=== PATIENT | female | born 1945 | race Caucasian/White ===

== ENCOUNTER → 2017-03-08 | Outpatient (CLI) | payer MEDICARE, OTHER ==
[~2017-03-08] MED LIST: ACET-1600 PO; ASPI-496 PO; BIFI4CAP PO; CALC1TAB PO; CHOL20002 PO; HYDR-3241 PO; LEVO125T PO; OMEP-110 PO; OMEP40CA6 PO; SILVER CENTRUM PO; SIMV20TA3 PO; SIMV40TA3 PO
[2017-03-08 15:44] LABS: ASPARTATE AMINO TRANSFERASE 21 U/L (15-37); BLOOD UREA NITROGEN 17 mg/dL (7-18)
== END | disposition home or self-care (01) ==
LOC: STAR 14:17
PROVIDERS: ATTEND Specialist
DX: Z01.810 Encounter for preprocedural cardiovascular examination (principal); Z01.811 Encounter for preprocedural respiratory examination; K44.9 Diaphragmatic hernia without obstruction or gangrene; R79.1 Abnormal coagulation profile
CPT/HCPCS: 36415; 71020; 80053; 85025; 85610; 85730; 93005

== ENCOUNTER 2017-03-14 12:57 | Inpatient (IN) | payer MEDICARE, OTHER ==
[~2017-03-14] VITALS: Ht 168.9 cm; Wt 82.9 kg
[2017-03-14] MEDS ORDERED: LACTATED RINGERS 1,000 ML IV SCH (13:27)
[2017-03-14 13:34] VITALS: BP 166/75
[2017-03-14] MEDS ORDERED: FENTANYL PF 250 MCG/5ML ONE ×2 (15:39→19:00)
[2017-03-14] MEDS ORDERED: MIDAZOLAM 1 MG/ML, 2ML ONE (15:39)
[2017-03-14] MEDS ORDERED: BUPIVACAINE/PF-EPI 0.25% 1:200K ONE (16:46)
[2017-03-14] MEDS ORDERED: DEXAMETHASONE 4 MG/ML, 1ML ONE (16:57)
[2017-03-14] MEDS ORDERED: GLYCOPYRROLATE 0.2MG/1ML ONE (16:57)
[2017-03-14] MEDS ORDERED: ROCURONIUM 10 MG/ML ONE (16:57)
[2017-03-14] MEDS ORDERED: PHENYLEPHRINE 10 MG/ML ONE (16:57)
[2017-03-14] MEDS ORDERED: CEFAZOLIN 1,000 MG ONE (16:57)
[2017-03-14] MEDS ORDERED: ONDANSETRON 2MG/ML, 2ML ONE (16:57)
[2017-03-14] MEDS ORDERED: NEOSTIGMINE 1 MG/ML, 10ML ONE (16:57)
[2017-03-14] MEDS ORDERED: PROPOFOL 10 MG/ML, 20ML ONE (16:57)
[2017-03-14] MEDS ORDERED: INDOCYANINE GREEN 25 MG VIAL IV ONE (17:00)
[2017-03-14] MEDS ORDERED: ONDANSETRON 2MG/ML, 2ML IVPush PRN (19:00)
[2017-03-14] MEDS ORDERED: ALBUTEROL/IPRATROPIUM 2.5MG/0.5MG, 3 ML NPPB PRN (19:00)
[2017-03-14] MEDS ORDERED: METOCLOPRAMIDE 5 MG/ML, 2ML IV PRN (19:00)
[2017-03-14] MEDS ORDERED: LABETALOL 5MG/ML, 20ML IV PRN (19:00)
[2017-03-14] MEDS ORDERED: PROMETHAZINE 25 MG/ML, 1ML IV PRN (19:00)
[2017-03-14] MEDS ORDERED: ACETAMINOPHEN 325 MG TABLET PO PRN (19:00)
[2017-03-14] MEDS ORDERED: hydrALAzine 20 MG/ML, 1ML IV PRN (19:00)
[2017-03-14] MEDS ORDERED: MIDAZOLAM 1 MG/ML, 2ML IV PRN (19:00)
[2017-03-14] MEDS ORDERED: FENTANYL PF 100 MCG/2ML IV PRN (19:00)
[2017-03-14] MEDS ORDERED: OXYcodone 5 MG/5 ML ORAL.SOL UDC PO PRN (19:00)
[2017-03-14] MEDS ORDERED: MEPERIDINE/PF 25MG/0.5ML IVPush PRN (19:00)
[2017-03-14] MEDS ORDERED: HYDROmorphone 1 MG/ML, 1ML ONE (21:09)
[2017-03-14] MEDS: HYDROmorphone 1 MG/ML, 1ML IV PRN ×3 (21:30→22:06)
[2017-03-14] MEDS ORDERED: morphine SULFATE 10 MG/ML, 1ML IV PRN (23:00)
[2017-03-14] MEDS: POTASSIUM CHLORIDE 20 MEQ in D5%-0.45% NACL 1,000 ML IV SCH (23:39)
[2017-03-14] MEDS: SIMVASTATIN 20 MG TABLET PO SCH (23:48)
[2017-03-15 02:14] VITALS: BP 139/62
[2017-03-15] MEDS: LEVOTHYROXINE 125 MCG TABLET PO SCH (05:29)
[2017-03-15 06:02] LABS: BLOOD UREA NITROGEN 16 mg/dL (7-18)
[2017-03-15] MEDS: POTASSIUM CHLORIDE 20 MEQ in D5%-0.45% NACL 1,000 ML IV SCH ×3 (06:03→20:43)
[2017-03-15 06:57] VITALS: BP 110/64
[2017-03-15] MEDS: OMEPRAZOLE 20 MG CAPSULE.DR PO SCH (07:30)
[2017-03-15] MEDS: CALCIUM/VITAMIN D3 250-125 TABLET PO SCH ×2 (09:00→20:35)
[2017-03-15] MEDS: LACTOBACILLUS CHEW TABLET PO SCH (09:00)
[2017-03-15] MEDS: CHOLECALCIFEROL 1,000 UNIT TABLET PO SCH (09:00)
[2017-03-15] MEDS: ASPIRIN 81 MG TABLET CHEW PO SCH (09:00)
[2017-03-15] MEDS: MULTIVITAMIN 1 TABLET PO SCH (09:00)
[2017-03-15] MEDS ORDERED: ONDANSETRON 2MG/ML, 2ML IVPush PRN (12:30)
[2017-03-15] MEDS: ONDANSETRON ODT 4 MG PO PRN ×3 (12:30→23:07)
[2017-03-15 15:52] VITALS: BP 119/59
[2017-03-15 19:15] VITALS: BP 116/66
[2017-03-15] MEDS: SIMVASTATIN 20 MG TABLET PO SCH (20:43)
[2017-03-16 02:03] VITALS: BP 128/76
[2017-03-16] MEDS: POTASSIUM CHLORIDE 20 MEQ in D5%-0.45% NACL 1,000 ML IV SCH (02:44)
[2017-03-16] MEDS: ONDANSETRON ODT 4 MG PO PRN (04:26)
[2017-03-16 05:08] LABS: BLOOD UREA NITROGEN 8 mg/dL (7-18)
[2017-03-16 05:10] LABS: ASPARTATE AMINO TRANSFERASE 23 U/L (15-37)
[2017-03-16] MEDS: LEVOTHYROXINE 125 MCG TABLET PO SCH (05:30)
[2017-03-16 06:35] VITALS: BP 141/45
[2017-03-16] MEDS: OMEPRAZOLE 20 MG CAPSULE.DR PO SCH (07:30)
[2017-03-16] MEDS: ASPIRIN 81 MG TABLET CHEW PO SCH (09:00)
[2017-03-16] MEDS: CHOLECALCIFEROL 1,000 UNIT TABLET PO SCH (09:00)
[2017-03-16] MEDS: CALCIUM/VITAMIN D3 250-125 TABLET PO SCH (09:00)
[2017-03-16] MEDS ORDERED: ASPIRIN 81 MG TABLET EC PO SCH (09:00)
[2017-03-16] MEDS: LACTOBACILLUS CHEW TABLET PO SCH (09:00)
[2017-03-16] MEDS: MULTIVITAMIN 1 TABLET PO SCH (09:00)
[2017-03-16] MEDS ORDERED: OMEPRAZOLE 20 MG CAPSULE.DR PO SCH (09:00)
[2017-03-16] MEDS ORDERED: ONDA-39 PO (16:01)
[2017-03-16] MEDS ORDERED: ONDA4TAB13 SL (16:01)
[2017-03-16] MEDS ORDERED: HYDR-882 PO (16:02)
[2017-03-16] MEDS ORDERED: SIMVASTATIN 20 MG TABLET PO SCH (21:00)
[2017-03-17] MEDS ORDERED: LEVOTHYROXINE 125 MCG TABLET PO SCH (06:00)
== END 2017-03-16 16:20 | disposition home or self-care (01) | DRG 739 ==
LOC: OUT 12:57 → 3NW 22:34 → OUT 22:39 → 3NW 22:39 → DCLOUNGE 03-16 13:55
PROVIDERS: ADMIT Specialist; ATTEND Specialist
PROC: 0UTC4ZZ Resection of Cervix, Percutaneous Endoscopic Approach (ICD-10-PCS; 2017-03-14)
PROC: 0UT24ZZ Resection of Bilateral Ovaries, Percutaneous Endoscopic Approach (ICD-10-PCS; 2017-03-14)
PROC: 0UT74ZZ Resection of Bilateral Fallopian Tubes, Percutaneous Endoscopic Approach (ICD-10-PCS; 2017-03-14)
PROC: 07BC4ZZ Excision of Pelvis Lymphatic, Percutaneous Endoscopic Approach (ICD-10-PCS; 2017-03-14)
PROC: 0DNW4ZZ Release Peritoneum, Percutaneous Endoscopic Approach (ICD-10-PCS; 2017-03-14)
PROC: 8E0W4CZ Robotic Assisted Procedure of Trunk Region, Percutaneous Endoscopic Approach (ICD-10-PCS; 2017-03-14)
PROC: 0UT94ZZ Resection of Uterus, Percutaneous Endoscopic Approach (ICD-10-PCS; principal; 2017-03-14 16:00)
DX: C54.1 Malignant neoplasm of endometrium (principal); E43 Unspecified severe protein-calorie malnutrition; K57.12 Diverticulitis of small intestine without perforation or abscess without bleeding; I89.8 Other specified noninfective disorders of lymphatic vessels and lymph nodes; K57.30 Diverticulosis of large intestine without perforation or abscess without bleeding; K66.0 Peritoneal adhesions (postprocedural) (postinfection); E03.9 Hypothyroidism, unspecified; E78.5 Hyperlipidemia, unspecified; K21.9 Gastro-esophageal reflux disease without esophagitis; R11.2 Nausea with vomiting, unspecified
CPT/HCPCS: 36415; 74000; 80048; 80053; 85025; 86850; 86900; 86923; 88112; 88304; 88305; 88307; 88331; 88333; J0690; J1100; J1170; J2250; J2405; J2704; J2710; J3010; J3480; J3490; Q0162; J2370; J7120

== ENCOUNTER 2017-03-21 02:45 | Inpatient (IN) | payer MEDICARE, OTHER ==
[~2017-03-21] VITALS: Ht 167.6 cm; Wt 77.1 kg
[~2017-03-21 02:45] MED LIST changes: +HYDR-882 PO; +ONDA-39 PO; +ONDA4TAB13 SL
[2017-03-21 03:42] LABS: BLOOD UREA NITROGEN 18 mg/dL (7-18)
[2017-03-21 03:44] LABS: ASPARTATE AMINO TRANSFERASE 49 U/L (15-37)
[2017-03-21 03:59] LABS: DIFF TOTAL CELLS COUNTED 100 CELL DIFF
[2017-03-21 04:02] LABS: VERIFY COUNTS? YES
[2017-03-21 04:12] LABS: PATH.CAST-FLAG NOT PRESENT; SPERM-FLAG NOT PRESENT; SRC-FLAG NOT PRESENT; XTAL-FLAG NOT PRESENT; YLC-FLAG NOT PRESENT
[2017-03-21] MEDS ORDERED: SODIUM CHLORIDE 0.9% 1,000ML IVBOLUS ONE ×2 (05:30→06:00)
[2017-03-21] MEDS ORDERED: PIPERACILLIN/TAZO/PMX 3.375GM 50 ML ONE (05:47)
[2017-03-21] MEDS ORDERED: SODIUM CHLORIDE 0.9% 1,000 ML IV ONE (05:49)
[2017-03-21] MEDS ORDERED: MORPHINE SULFATE 4 MG/ML, 1ML IVPush PRN (06:00)
[2017-03-21] MEDS ORDERED: PIPERACILLIN/TAZO/PMX 3.375GM 50 ML IV ONE (06:00)
[2017-03-21] MEDS ORDERED: ONDANSETRON 2MG/ML, 2ML IVPush PRN (06:00)
[2017-03-21] MEDS ORDERED: VANCOMYCIN PER PHARMACY MC ONE (06:00)
[2017-03-21] MEDS ORDERED: OMNIPAQUE 350 MG/ML, 100ML BOTTLE ONE (06:07)
[2017-03-21] MEDS ORDERED: VANCOMYCIN 1,500 MG in SODIUM CHLORIDE 0.9% 250 ML IV ONE (06:30)
[2017-03-21 12:28] VITALS: BP 122/75
[2017-03-21] MEDS ORDERED: ONDANSETRON 4 MG TABLET PO SCH (13:30)
[2017-03-21] MEDS: PIPERACILLIN/TAZO/PMX 3.375GM 50 ML IV SCH ×2 (13:54→19:52)
[2017-03-21] MEDS: METRONIDAZOLE PMX 500MG/100ML 100 ML IV SCH ×2 (14:33→20:35)
[2017-03-21] MEDS: POTASSIUM CHLORIDE 20 MEQ in SODIUM CHLORIDE 0.45% 1,000 ML IV SCH (18:04)
[2017-03-21] MEDS ORDERED: ONDANSETRON 4 MG TABLET PO PRN (19:30)
[2017-03-21 19:51] VITALS: BP 116/74
[2017-03-21] MEDS: CALCIUM/VITAMIN D3 250-125 TABLET PO SCH (19:51)
[2017-03-21] MEDS: SIMVASTATIN 20 MG TABLET PO SCH (19:51)
[2017-03-22] MEDS: PIPERACILLIN/TAZO/PMX 3.375GM 50 ML IV SCH ×4 (02:03→20:28)
[2017-03-22] MEDS: POTASSIUM CHLORIDE 20 MEQ in SODIUM CHLORIDE 0.45% 1,000 ML IV SCH ×2 (02:03→13:02)
[2017-03-22] MEDS: METRONIDAZOLE PMX 500MG/100ML 100 ML IV SCH ×4 (02:39→21:29)
[2017-03-22] MEDS: LEVOTHYROXINE 125 MCG TABLET PO SCH (05:37)
[2017-03-22 06:27] LABS: BLOOD UREA NITROGEN 24 mg/dL (7-18)
[2017-03-22 07:09] LABS: DIFF TOTAL CELLS COUNTED 100 CELL DIFF
[2017-03-22 07:11] LABS: VERIFY COUNTS? YES
[2017-03-22 08:09] VITALS: BP 122/73
[2017-03-22] MEDS: TEMPLATE NON-FORMULARY MED. (Bifidobacterium Infantis** (Align**) 4 MG) PO SCH (08:56)
[2017-03-22] MEDS: ASPIRIN 81 MG TABLET EC PO SCH ×2 (09:00→09:05)
[2017-03-22] MEDS: CALCIUM/VITAMIN D3 250-125 TABLET PO SCH ×2 (09:05→20:28)
[2017-03-22] MEDS: CHOLECALCIFEROL 1,000 UNIT TABLET PO SCH (09:05)
[2017-03-22] MEDS: OMEPRAZOLE 20 MG CAPSULE.DR PO SCH (09:05)
[2017-03-22] MEDS: MULTIVITAMIN 1 TABLET PO SCH (09:05)
[2017-03-22 12:28] VITALS: BP 115/72
[2017-03-22] MEDS: NS + 20MEQ KCL 1,000 ML IV SCH (15:42)
[2017-03-22 20:23] VITALS: BP 101/65
[2017-03-22] MEDS: ACETAMINOPHEN 325 MG TABLET PO PRN (20:28)
[2017-03-22] MEDS: SIMVASTATIN 20 MG TABLET PO SCH (20:28)
[2017-03-23] MEDS: ACETAMINOPHEN 325 MG TABLET PO PRN ×4 (02:05→18:45)
[2017-03-23] MEDS: NS + 20MEQ KCL 1,000 ML IV SCH (02:05)
[2017-03-23] MEDS: PIPERACILLIN/TAZO/PMX 3.375GM 50 ML IV SCH ×4 (03:32→21:23)
[2017-03-23 03:41] VITALS: BP 101/62
[2017-03-23] MEDS: LEVOTHYROXINE 125 MCG TABLET PO SCH (04:05)
[2017-03-23] MEDS: METRONIDAZOLE PMX 500MG/100ML 100 ML IV SCH ×4 (04:05→21:55)
[2017-03-23] MEDS: TEMPLATE NON-FORMULARY MED. (Bifidobacterium Infantis** (Align**) 4 MG) PO SCH (07:36)
[2017-03-23 08:02] VITALS: BP_SYST 101; BP_SYST 93; BP_DIAS 55; BP_DIAS 58
[2017-03-23] MEDS: ASPIRIN 81 MG TABLET EC PO SCH ×2 (09:00→21:23)
[2017-03-23] MEDS: CHOLECALCIFEROL 1,000 UNIT TABLET PO SCH (09:00)
[2017-03-23] MEDS: OMEPRAZOLE 20 MG CAPSULE.DR PO SCH (09:26)
[2017-03-23] MEDS: MULTIVITAMIN 1 TABLET PO SCH (09:26)
[2017-03-23] MEDS: CALCIUM/VITAMIN D3 250-125 TABLET PO SCH ×2 (09:26→21:00)
[2017-03-23 10:39] LABS: BLOOD UREA NITROGEN 27 mg/dL (7-18)
[2017-03-23 13:30] VITALS: BP 110/68
[2017-03-23 20:55] VITALS: BP 100/60
[2017-03-23] MEDS: SIMVASTATIN 20 MG TABLET PO SCH (21:23)
[2017-03-23] MEDS ORDERED: ACETAMINOPHEN 325 MG TABLET PO PRN (22:00)
[2017-03-24] MEDS: LEVOTHYROXINE 125 MCG TABLET PO SCH (03:14)
[2017-03-24] MEDS: PIPERACILLIN/TAZO/PMX 3.375GM 50 ML IV SCH ×4 (03:26→21:44)
[2017-03-24 04:01] VITALS: BP 102/65
[2017-03-24] MEDS: METRONIDAZOLE PMX 500MG/100ML 100 ML IV SCH ×2 (04:04→11:05)
[2017-03-24 06:09] LABS: BLOOD UREA NITROGEN 20 mg/dL (7-18)
[2017-03-24] MEDS ORDERED: LIDOCAINE 2%, 20ML ONE ×3 (08:12→13:50)
[2017-03-24] MEDS ORDERED: MIDAZOLAM 1 MG/ML, 5ML ONE ×2 (08:14→14:05)
[2017-03-24] MEDS ORDERED: FENTANYL PF 100 MCG/2ML ONE ×2 (08:14→14:05)
[2017-03-24] MEDS ORDERED: NALOXONE 1 MG/ML, 2ML ONE ×2 (08:14→14:05)
[2017-03-24] MEDS ORDERED: FLUMAZENIL 0.1 MG/1 ML, 5ML ONE ×2 (08:14→14:06)
[2017-03-24 08:30] VITALS: BP 101/56
[2017-03-24] MEDS ORDERED: MEPERIDINE/PF 50 MG/ML ONE ×2 (08:32→14:05)
[2017-03-24] MEDS ORDERED: DIPHENHYDRAMINE 50 MG/ML, 1ML ONE ×2 (08:32→14:05)
[2017-03-24] MEDS: CHOLECALCIFEROL 1,000 UNIT TABLET PO SCH (10:00)
[2017-03-24] MEDS: TEMPLATE NON-FORMULARY MED. (Bifidobacterium Infantis** (Align**) 4 MG) PO SCH (10:00)
[2017-03-24] MEDS: MULTIVITAMIN 1 TABLET PO SCH (10:00)
[2017-03-24] MEDS: CALCIUM/VITAMIN D3 250-125 TABLET PO SCH ×2 (10:00→21:44)
[2017-03-24] MEDS: OMEPRAZOLE 20 MG CAPSULE.DR PO SCH (10:00)
[2017-03-24 15:30] VITALS: BP 106/51
[2017-03-24] MEDS: VANCOMYCIN 50 MG/ML ORAL SUSP PO SCH ×2 (16:48→21:44)
[2017-03-24] MEDS: ACETAMINOPHEN 325 MG TABLET PO PRN ×2 (17:44→22:39)
[2017-03-24 20:07] VITALS: BP 103/66
[2017-03-24] MEDS: SIMVASTATIN 20 MG TABLET PO SCH (21:44)
[2017-03-24 23:57] VITALS: BP 100/60
[2017-03-25 03:55] VITALS: BP 103/64
[2017-03-25] MEDS: PIPERACILLIN/TAZO/PMX 3.375GM 50 ML IV SCH ×4 (03:57→21:04)
[2017-03-25 05:07] LABS: BLOOD UREA NITROGEN 15 mg/dL (7-18)
[2017-03-25] MEDS: VANCOMYCIN 50 MG/ML ORAL SUSP PO SCH ×4 (06:05→21:03)
[2017-03-25] MEDS: LEVOTHYROXINE 125 MCG TABLET PO SCH (06:05)
[2017-03-25 06:53] VITALS: BP 100/59
[2017-03-25] MEDS: OMEPRAZOLE 20 MG CAPSULE.DR PO SCH (09:07)
[2017-03-25] MEDS: CHOLECALCIFEROL 1,000 UNIT TABLET PO SCH (09:07)
[2017-03-25] MEDS: CALCIUM/VITAMIN D3 250-125 TABLET PO SCH ×2 (09:08→21:03)
[2017-03-25] MEDS: MULTIVITAMIN 1 TABLET PO SCH (09:08)
[2017-03-25] MEDS: ASPIRIN 81 MG TABLET EC PO SCH (09:09)
[2017-03-25] MEDS: TEMPLATE NON-FORMULARY MED. (Bifidobacterium Infantis** (Align**) 4 MG) PO SCH (09:09)
[2017-03-25 12:42] VITALS: BP 101/56
[2017-03-25] MEDS: POTASSIUM CHLORIDE 20 MEQ TAB.ER.PRT PO SCH ×2 (17:24→22:21)
[2017-03-25 20:24] VITALS: BP 117/64
[2017-03-25] MEDS: SIMVASTATIN 20 MG TABLET PO SCH (21:03)
[2017-03-25] MEDS: ACETAMINOPHEN 325 MG TABLET PO PRN (22:40)
[2017-03-26] MEDS: PIPERACILLIN/TAZO/PMX 3.375GM 50 ML IV SCH ×4 (03:12→21:27)
[2017-03-26 04:44] VITALS: BP 98/56
[2017-03-26 05:28] LABS: BLOOD UREA NITROGEN 11 mg/dL (7-18)
[2017-03-26] MEDS: VANCOMYCIN 50 MG/ML ORAL SUSP PO SCH ×4 (06:38→21:27)
[2017-03-26] MEDS: LEVOTHYROXINE 125 MCG TABLET PO SCH (06:38)
[2017-03-26 07:52] VITALS: BP 120/72
[2017-03-26] MEDS: TEMPLATE NON-FORMULARY MED. (Bifidobacterium Infantis** (Align**) 4 MG) PO SCH (09:00)
[2017-03-26] MEDS ORDERED: POTASSIUM CHLORIDE 10 MEQ in SODIUM CHLORIDE 0.9% 250 ML IV ONE (09:00)
[2017-03-26] MEDS: MULTIVITAMIN 1 TABLET PO SCH (10:07)
[2017-03-26] MEDS: CALCIUM/VITAMIN D3 250-125 TABLET PO SCH ×2 (10:07→21:27)
[2017-03-26] MEDS: ASPIRIN 81 MG TABLET EC PO SCH (10:07)
[2017-03-26] MEDS: POTASSIUM CHLORIDE 20 MEQ TAB.ER.PRT PO SCH ×3 (10:08→21:27)
[2017-03-26] MEDS: OMEPRAZOLE 20 MG CAPSULE.DR PO SCH (10:09)
[2017-03-26] MEDS: CHOLECALCIFEROL 1,000 UNIT TABLET PO SCH (10:10)
[2017-03-26] MEDS: ACETAMINOPHEN 325 MG TABLET PO PRN (10:11)
[2017-03-26] MEDS ORDERED: TPN PER PHARMACY MC PRN (11:00)
[2017-03-26 15:49] VITALS: BP 97/64
[2017-03-26] MEDS: FILTER, DISP 1.2 MICRON FOR TPN/PVN IV PRN (16:36)
[2017-03-26] MEDS: SODIUM CHLORIDE 0.45% 1,000 ML IV SCH (16:37)
[2017-03-26] MEDS ORDERED: AMINO ACID 10% IV SCH (17:00)
[2017-03-26] MEDS ORDERED: [UNRECOGNIZED DRUG - OTHER] IV SCH (17:00)
[2017-03-26] MEDS ORDERED: DEXTROSE 10% 500 ML IV PRN (17:00)
[2017-03-26] MEDS ORDERED: DEXTROSE 70% IV SCH (17:00)
[2017-03-26] MEDS ORDERED: FAT EMULSIONS IV SCH (17:00)
[2017-03-26] MEDS ORDERED: DEXTROSE 50%, 50ML SYRINGE IVPush PRN (17:00)
[2017-03-26 18:29] VITALS: BP 118/68
[2017-03-26] MEDS: SIMVASTATIN 20 MG TABLET PO SCH (21:27)
[2017-03-26] MEDS: INSULIN REGULAR MEDIUM DOSE Q6H X 48HRS SQ-INSULIN SCH (21:33)
[2017-03-27] MEDS: INSULIN REGULAR MEDIUM DOSE Q6H X 48HRS SQ-INSULIN SCH ×4 (00:19→15:00)
[2017-03-27 04:04] VITALS: BP 116/67
[2017-03-27] MEDS: PIPERACILLIN/TAZO/PMX 3.375GM 50 ML IV SCH ×3 (04:26→17:55)
[2017-03-27 05:08] LABS: BLOOD UREA NITROGEN 9 mg/dL (7-18)
[2017-03-27 05:17] LABS: ASPARTATE AMINO TRANSFERASE 18 U/L (15-37)
[2017-03-27] MEDS: SODIUM CHLORIDE 0.45% 1,000 ML IV SCH ×2 (05:50→09:15)
[2017-03-27] MEDS: LEVOTHYROXINE 125 MCG TABLET PO SCH (06:00)
[2017-03-27] MEDS: VANCOMYCIN 50 MG/ML ORAL SUSP PO SCH ×3 (07:56→16:00)
[2017-03-27 08:33] VITALS: BP 117/74
[2017-03-27] MEDS: ASPIRIN 81 MG TABLET EC PO SCH (08:51)
[2017-03-27] MEDS: CALCIUM/VITAMIN D3 250-125 TABLET PO SCH ×2 (08:51→19:36)
[2017-03-27] MEDS: MULTIVITAMIN 1 TABLET PO SCH (08:51)
[2017-03-27] MEDS: TEMPLATE NON-FORMULARY MED. (Bifidobacterium Infantis** (Align**) 4 MG) PO SCH (08:51)
[2017-03-27] MEDS: POTASSIUM CHLORIDE 20 MEQ TAB.ER.PRT PO SCH ×3 (08:51→19:36)
[2017-03-27] MEDS: CHOLECALCIFEROL 1,000 UNIT TABLET PO SCH (08:52)
[2017-03-27] MEDS: OMEPRAZOLE 20 MG CAPSULE.DR PO SCH (08:52)
[2017-03-27] MEDS ORDERED: OXYcodone/APAP 5/325MG TABLET PO PRN (09:00)
[2017-03-27 14:00] VITALS: BP 115/72
[2017-03-27] MEDS ORDERED: [UNRECOGNIZED DRUG - OTHER] IV SCH (17:00)
[2017-03-27] MEDS ORDERED: FAT EMULSIONS IV SCH (17:00)
[2017-03-27] MEDS ORDERED: AMINO ACID 10% IV SCH (17:00)
[2017-03-27] MEDS ORDERED: DEXTROSE 70% IV SCH (17:00)
[2017-03-27] MEDS: FILTER, DISP 1.2 MICRON FOR TPN/PVN IV PRN (17:03)
[2017-03-27] MEDS: SIMVASTATIN 20 MG TABLET PO SCH (19:36)
[2017-03-27] MEDS: KETOROLAC 30 MG/1 ML IV PRN (19:36)
[2017-03-27] MEDS: MORPHINE SULFATE 4 MG/ML, 1ML IVPush PRN (19:36)
[2017-03-27 19:58] VITALS: BP 102/75
[2017-03-27] MEDS ORDERED: OCTREOTIDE 500 MCG/ML, 1ML (0.5MG/ML) SQ SCH (21:00)
[2017-03-28] MEDS: VANCOMYCIN 50 MG/ML ORAL SUSP PO SCH ×5 (00:01→22:44)
[2017-03-28] MEDS: OCTREOTIDE 100MCG/ML, 1ML (0.1MG/ML) SQ SCH ×2 (00:01→09:30)
[2017-03-28 03:20] VITALS: BP 114/71
[2017-03-28] MEDS: PIPERACILLIN/TAZO/PMX 3.375GM 50 ML IV SCH ×4 (05:41→17:54)
[2017-03-28] MEDS: INSULIN REGULAR MEDIUM DOSE Q6H X 48HRS SQ-INSULIN SCH ×3 (06:11→15:00)
[2017-03-28] MEDS: KETOROLAC 30 MG/1 ML IV PRN ×3 (06:19→21:45)
[2017-03-28] MEDS: SODIUM CHLORIDE 0.45% 1,000 ML IV SCH (06:19)
[2017-03-28 06:26] LABS: BLOOD UREA NITROGEN 9 mg/dL (7-18)
[2017-03-28 07:37] VITALS: BP 117/57
[2017-03-28] MEDS: TEMPLATE NON-FORMULARY MED. (Bifidobacterium Infantis** (Align**) 4 MG) PO SCH (08:04)
[2017-03-28] MEDS: CHOLECALCIFEROL 1,000 UNIT TABLET PO SCH (09:00)
[2017-03-28] MEDS: ASPIRIN 81 MG TABLET EC PO SCH (09:00)
[2017-03-28] MEDS: OMEPRAZOLE 20 MG CAPSULE.DR PO SCH (09:00)
[2017-03-28] MEDS: CALCIUM/VITAMIN D3 250-125 TABLET PO SCH ×2 (09:00→21:46)
[2017-03-28] MEDS: POTASSIUM CHLORIDE 20 MEQ TAB.ER.PRT PO SCH ×3 (09:00→21:46)
[2017-03-28] MEDS: MULTIVITAMIN 1 TABLET PO SCH (09:00)
[2017-03-28] MEDS: LEVOTHYROXINE SODIUM 200 MCG INJ IVPush SCH (09:30)
[2017-03-28 14:03] VITALS: BP 128/74
[2017-03-28] MEDS: OCTREOTIDE 500 MCG/ML, 1ML (0.5MG/ML) SQ SCH ×2 (16:07→22:43)
[2017-03-28] MEDS ORDERED: FAT EMULSIONS IV SCH (17:00)
[2017-03-28] MEDS ORDERED: AMINO ACID 10% IV SCH (17:00)
[2017-03-28] MEDS ORDERED: [UNRECOGNIZED DRUG - OTHER] IV SCH (17:00)
[2017-03-28] MEDS ORDERED: DEXTROSE 70% IV SCH (17:00)
[2017-03-28] MEDS: FILTER, DISP 1.2 MICRON FOR TPN/PVN IV PRN (17:37)
[2017-03-28 19:07] VITALS: BP 103/66
[2017-03-28] MEDS: MORPHINE SULFATE 4 MG/ML, 1ML IVPush PRN ×2 (21:43→21:45)
[2017-03-28] MEDS: SIMVASTATIN 20 MG TABLET PO SCH (21:46)
[2017-03-29] MEDS: PIPERACILLIN/TAZO/PMX 3.375GM 50 ML IV SCH ×5 (00:18→23:59)
[2017-03-29 02:51] VITALS: BP 109/66
[2017-03-29 04:57] LABS: BLOOD UREA NITROGEN 14 mg/dL (7-18)
[2017-03-29] MEDS: VANCOMYCIN 50 MG/ML ORAL SUSP PO SCH ×4 (06:41→20:54)
[2017-03-29 08:10] VITALS: BP 112/71
[2017-03-29] MEDS: OMEPRAZOLE 20 MG CAPSULE.DR PO SCH (09:00)
[2017-03-29] MEDS: LEVOTHYROXINE SODIUM 200 MCG INJ IVPush SCH (09:00)
[2017-03-29] MEDS: CHOLECALCIFEROL 1,000 UNIT TABLET PO SCH (09:00)
[2017-03-29] MEDS: MULTIVITAMIN 1 TABLET PO SCH (09:00)
[2017-03-29] MEDS: CALCIUM/VITAMIN D3 250-125 TABLET PO SCH ×2 (09:00→20:47)
[2017-03-29] MEDS: TEMPLATE NON-FORMULARY MED. (Bifidobacterium Infantis** (Align**) 4 MG) PO SCH (09:00)
[2017-03-29] MEDS: POTASSIUM CHLORIDE 20 MEQ TAB.ER.PRT PO SCH ×3 (09:00→20:47)
[2017-03-29] MEDS: ASPIRIN 81 MG TABLET EC PO SCH (09:00)
[2017-03-29] MEDS: INSULIN REGULAR MEDIUM DOSE QDAY SQ-INSULIN SCH (09:00)
[2017-03-29] MEDS: OCTREOTIDE 500 MCG/ML, 1ML (0.5MG/ML) SQ SCH ×4 (09:26→20:54)
[2017-03-29 12:31] VITALS: BP 100/65
[2017-03-29] MEDS ORDERED: DEXTROSE 70% IV SCH (17:00)
[2017-03-29] MEDS ORDERED: AMINO ACID 10% IV SCH (17:00)
[2017-03-29] MEDS ORDERED: [UNRECOGNIZED DRUG - OTHER] IV SCH (17:00)
[2017-03-29] MEDS ORDERED: FAT EMULSIONS IV SCH (17:00)
[2017-03-29] MEDS: FILTER, DISP 1.2 MICRON FOR TPN/PVN IV PRN (18:46)
[2017-03-29 19:12] VITALS: BP 109/69
[2017-03-29] MEDS: SIMVASTATIN 20 MG TABLET PO SCH (20:47)
[2017-03-29] MEDS: KETOROLAC 30 MG/1 ML IV PRN (20:54)
[2017-03-30 02:45] VITALS: BP 129/79
[2017-03-30 05:14] LABS: BLOOD UREA NITROGEN 17 mg/dL (7-18)
[2017-03-30] MEDS: VANCOMYCIN 50 MG/ML ORAL SUSP PO SCH ×4 (06:02→21:01)
[2017-03-30] MEDS: PIPERACILLIN/TAZO/PMX 3.375GM 50 ML IV SCH ×4 (06:02→23:56)
[2017-03-30] MEDS: POTASSIUM CHLORIDE 20 MEQ TAB.ER.PRT PO SCH ×3 (09:00→20:21)
[2017-03-30] MEDS: CALCIUM/VITAMIN D3 250-125 TABLET PO SCH ×2 (09:00→20:21)
[2017-03-30] MEDS: INSULIN REGULAR MEDIUM DOSE QDAY SQ-INSULIN SCH (09:00)
[2017-03-30] MEDS: CHOLECALCIFEROL 1,000 UNIT TABLET PO SCH (09:00)
[2017-03-30] MEDS: MULTIVITAMIN 1 TABLET PO SCH (09:00)
[2017-03-30] MEDS: TEMPLATE NON-FORMULARY MED. (Bifidobacterium Infantis** (Align**) 4 MG) PO SCH (09:00)
[2017-03-30] MEDS: ASPIRIN 81 MG TABLET EC PO SCH (09:00)
[2017-03-30] MEDS: OMEPRAZOLE 20 MG CAPSULE.DR PO SCH (09:00)
[2017-03-30] MEDS: LEVOTHYROXINE SODIUM 200 MCG INJ IVPush SCH (09:00)
[2017-03-30] MEDS: OCTREOTIDE 500 MCG/ML, 1ML (0.5MG/ML) SQ SCH ×3 (09:22→21:01)
[2017-03-30 09:52] VITALS: BP 103/67
[2017-03-30] MEDS ORDERED: FLUCONAZOLE 400 MG/200 ML 200 ML IV ONE (12:00)
[2017-03-30 14:00] VITALS: BP 104/67
[2017-03-30] MEDS ORDERED: FAT EMULSIONS IV SCH (17:00)
[2017-03-30] MEDS ORDERED: AMINO ACID 10% IV SCH (17:00)
[2017-03-30] MEDS ORDERED: FILTER, DISP 1.2 MICRON FOR TPN/PVN IV PRN (17:00)
[2017-03-30] MEDS ORDERED: [UNRECOGNIZED DRUG - OTHER] IV SCH (17:00)
[2017-03-30] MEDS ORDERED: DEXTROSE 70% IV SCH (17:00)
[2017-03-30] MEDS: SODIUM CHLORIDE 0.45% 1,000 ML IV SCH (17:55)
[2017-03-30 20:02] VITALS: BP 109/68
[2017-03-30] MEDS: SIMVASTATIN 20 MG TABLET PO SCH (20:21)
[2017-03-31 01:23] VITALS: BP 92/49
[2017-03-31] MEDS: VANCOMYCIN 50 MG/ML ORAL SUSP PO SCH ×4 (06:00→21:20)
[2017-03-31] MEDS: PIPERACILLIN/TAZO/PMX 3.375GM 50 ML IV SCH ×3 (06:15→18:19)
[2017-03-31 08:24] VITALS: BP 101/64
[2017-03-31] MEDS: ASPIRIN 81 MG TABLET EC PO SCH (09:00)
[2017-03-31] MEDS: POTASSIUM CHLORIDE 20 MEQ TAB.ER.PRT PO SCH ×3 (09:00→21:00)
[2017-03-31] MEDS: TEMPLATE NON-FORMULARY MED. (Bifidobacterium Infantis** (Align**) 4 MG) PO SCH (09:00)
[2017-03-31] MEDS: INSULIN REGULAR MEDIUM DOSE QDAY SQ-INSULIN SCH (09:00)
[2017-03-31] MEDS: CHOLECALCIFEROL 1,000 UNIT TABLET PO SCH (09:00)
[2017-03-31] MEDS: CALCIUM/VITAMIN D3 250-125 TABLET PO SCH ×2 (09:00→21:00)
[2017-03-31] MEDS: MULTIVITAMIN 1 TABLET PO SCH (09:00)
[2017-03-31] MEDS: OMEPRAZOLE 20 MG CAPSULE.DR PO SCH (09:00)
[2017-03-31] MEDS: LEVOTHYROXINE 100 MCG INJ IVPush SCH (09:16)
[2017-03-31] MEDS: OCTREOTIDE 500 MCG/ML, 1ML (0.5MG/ML) SQ SCH ×3 (09:17→21:20)
[2017-03-31] MEDS: FLUCONAZOLE 200 MG/100 ML 100 ML IV SCH (12:35)
[2017-03-31 15:27] VITALS: BP 107/63
[2017-03-31] MEDS ORDERED: [UNRECOGNIZED DRUG - OTHER] IV SCH (17:00)
[2017-03-31] MEDS ORDERED: FAT EMULSIONS IV SCH (17:00)
[2017-03-31] MEDS ORDERED: FILTER, DISP 1.2 MICRON FOR TPN/PVN IV PRN (17:00)
[2017-03-31] MEDS ORDERED: AMINO ACID 10% IV SCH (17:00)
[2017-03-31] MEDS ORDERED: DEXTROSE 70% IV SCH (17:00)
[2017-03-31 18:59] VITALS: BP 104/58
[2017-03-31] MEDS: SIMVASTATIN 20 MG TABLET PO SCH (21:00)
[2017-04-01] MEDS: PIPERACILLIN/TAZO/PMX 3.375GM 50 ML IV SCH ×4 (00:10→17:46)
[2017-04-01 01:16] VITALS: BP 108/63
[2017-04-01 04:44] LABS: BLOOD UREA NITROGEN 18 mg/dL (7-18)
[2017-04-01 07:10] VITALS: BP 94/62
[2017-04-01] MEDS: TEMPLATE NON-FORMULARY MED. (Bifidobacterium Infantis** (Align**) 4 MG) PO SCH (07:41)
[2017-04-01] MEDS: POTASSIUM CHLORIDE 20 MEQ TAB.ER.PRT PO SCH ×3 (07:41→21:00)
[2017-04-01] MEDS: ASPIRIN 81 MG TABLET EC PO SCH (07:41)
[2017-04-01] MEDS: MULTIVITAMIN 1 TABLET PO SCH (07:42)
[2017-04-01] MEDS: OMEPRAZOLE 20 MG CAPSULE.DR PO SCH (07:42)
[2017-04-01] MEDS: CHOLECALCIFEROL 1,000 UNIT TABLET PO SCH (07:42)
[2017-04-01] MEDS: CALCIUM/VITAMIN D3 250-125 TABLET PO SCH ×2 (07:42→21:00)
[2017-04-01] MEDS: INSULIN REGULAR MEDIUM DOSE QDAY SQ-INSULIN SCH (09:00)
[2017-04-01] MEDS: VANCOMYCIN 50 MG/ML ORAL SUSP PO SCH ×2 (09:00→21:29)
[2017-04-01] MEDS: LEVOTHYROXINE 100 MCG INJ IVPush SCH (09:01)
[2017-04-01] MEDS: OCTREOTIDE 500 MCG/ML, 1ML (0.5MG/ML) SQ SCH ×3 (09:01→21:28)
[2017-04-01] MEDS: FLUCONAZOLE 200 MG/100 ML 100 ML IV SCH (14:26)
[2017-04-01 14:30] VITALS: BP 92/56
[2017-04-01] MEDS ORDERED: FAT EMULSIONS IV SCH (17:00)
[2017-04-01] MEDS ORDERED: DEXTROSE 70% IV SCH (17:00)
[2017-04-01] MEDS ORDERED: [UNRECOGNIZED DRUG - OTHER] IV SCH (17:00)
[2017-04-01] MEDS ORDERED: AMINO ACID 10% IV SCH (17:00)
[2017-04-01] MEDS: FILTER, DISP 1.2 MICRON FOR TPN/PVN IV PRN (17:47)
[2017-04-01 19:29] VITALS: BP 108/69
[2017-04-01] MEDS: SIMVASTATIN 20 MG TABLET PO SCH (21:00)
[2017-04-02] MEDS: PIPERACILLIN/TAZO/PMX 3.375GM 50 ML IV SCH ×4 (00:10→18:23)
[2017-04-02 01:20] VITALS: BP 98/55
[2017-04-02 07:25] VITALS: BP 103/63
[2017-04-02] MEDS: INSULIN REGULAR MEDIUM DOSE QDAY SQ-INSULIN SCH (09:00)
[2017-04-02] MEDS: TEMPLATE NON-FORMULARY MED. (Bifidobacterium Infantis** (Align**) 4 MG) PO SCH (09:00)
[2017-04-02] MEDS: CALCIUM/VITAMIN D3 250-125 TABLET PO SCH ×2 (09:00→20:35)
[2017-04-02] MEDS: OMEPRAZOLE 20 MG CAPSULE.DR PO SCH (09:00)
[2017-04-02] MEDS: MULTIVITAMIN 1 TABLET PO SCH (09:00)
[2017-04-02] MEDS: CHOLECALCIFEROL 1,000 UNIT TABLET PO SCH (09:00)
[2017-04-02] MEDS: ASPIRIN 81 MG TABLET EC PO SCH (09:00)
[2017-04-02] MEDS: POTASSIUM CHLORIDE 20 MEQ TAB.ER.PRT PO SCH ×3 (09:00→20:34)
[2017-04-02] MEDS: OCTREOTIDE 500 MCG/ML, 1ML (0.5MG/ML) SQ SCH ×2 (09:00→15:55)
[2017-04-02] MEDS: LEVOTHYROXINE 100 MCG INJ IVPush SCH (09:26)
[2017-04-02] MEDS: VANCOMYCIN 50 MG/ML ORAL SUSP PO SCH ×2 (09:27→20:34)
[2017-04-02 14:01] VITALS: BP 105/62
[2017-04-02] MEDS: FLUCONAZOLE 200 MG/100 ML 100 ML IV SCH (15:54)
[2017-04-02] MEDS ORDERED: [UNRECOGNIZED DRUG - OTHER] IV SCH (17:00)
[2017-04-02] MEDS ORDERED: DEXTROSE 70% IV SCH (17:00)
[2017-04-02] MEDS ORDERED: FAT EMULSIONS IV SCH (17:00)
[2017-04-02] MEDS ORDERED: AMINO ACID 10% IV SCH (17:00)
[2017-04-02] MEDS: FILTER, DISP 1.2 MICRON FOR TPN/PVN IV PRN (18:23)
[2017-04-02 20:30] VITALS: BP 100/62
[2017-04-02] MEDS: SIMVASTATIN 20 MG TABLET PO SCH (20:35)
[2017-04-03] MEDS: PIPERACILLIN/TAZO/PMX 3.375GM 50 ML IV SCH ×5 (00:01→23:45)
[2017-04-03 06:11] VITALS: BP 111/69
[2017-04-03 08:26] VITALS: BP 108/61
[2017-04-03] MEDS: CALCIUM/VITAMIN D3 250-125 TABLET PO SCH ×2 (09:00→19:33)
[2017-04-03] MEDS: TEMPLATE NON-FORMULARY MED. (Bifidobacterium Infantis** (Align**) 4 MG) PO SCH (09:00)
[2017-04-03] MEDS: OMEPRAZOLE 20 MG CAPSULE.DR PO SCH (09:00)
[2017-04-03] MEDS: ASPIRIN 81 MG TABLET EC PO SCH (09:00)
[2017-04-03] MEDS: MULTIVITAMIN 1 TABLET PO SCH (09:00)
[2017-04-03] MEDS: POTASSIUM CHLORIDE 20 MEQ TAB.ER.PRT PO SCH ×3 (09:00→19:16)
[2017-04-03] MEDS: CHOLECALCIFEROL 1,000 UNIT TABLET PO SCH (09:00)
[2017-04-03] MEDS: LEVOTHYROXINE 100 MCG INJ IVPush SCH ×2 (09:04→12:32)
[2017-04-03] MEDS: VANCOMYCIN 50 MG/ML ORAL SUSP PO SCH ×2 (09:04→19:49)
[2017-04-03] MEDS: INSULIN REGULAR MEDIUM DOSE QDAY SQ-INSULIN SCH (09:06)
[2017-04-03] MEDS: FLUCONAZOLE 200 MG/100 ML 100 ML IV SCH (12:29)
[2017-04-03 15:00] VITALS: BP 123/73
[2017-04-03] MEDS ORDERED: FAT EMULSIONS IV SCH (17:00)
[2017-04-03] MEDS ORDERED: [UNRECOGNIZED DRUG - OTHER] IV SCH (17:00)
[2017-04-03] MEDS ORDERED: AMINO ACID 10% IV SCH (17:00)
[2017-04-03] MEDS ORDERED: DEXTROSE 70% IV SCH (17:00)
[2017-04-03] MEDS: FILTER, DISP 1.2 MICRON FOR TPN/PVN IV PRN (18:05)
[2017-04-03] MEDS: SIMVASTATIN 20 MG TABLET PO SCH (19:34)
[2017-04-03 19:47] VITALS: BP 109/69
[2017-04-04 04:20] LABS: ASPARTATE AMINO TRANSFERASE 13 U/L (15-37); BLOOD UREA NITROGEN 20 mg/dL (7-18)
[2017-04-04 05:00] VITALS: BP 103/68
[2017-04-04] MEDS: PIPERACILLIN/TAZO/PMX 3.375GM 50 ML IV SCH (06:10)
[2017-04-04 08:17] VITALS: BP 106/68
[2017-04-04] MEDS: LEVOTHYROXINE 100 MCG INJ IVPush SCH (08:44)
[2017-04-04] MEDS: POTASSIUM CHLORIDE 20 MEQ TAB.ER.PRT PO SCH ×3 (08:44→21:41)
[2017-04-04] MEDS: TEMPLATE NON-FORMULARY MED. (Bifidobacterium Infantis** (Align**) 4 MG) PO SCH (08:44)
[2017-04-04] MEDS: CALCIUM/VITAMIN D3 250-125 TABLET PO SCH ×2 (08:44→20:47)
[2017-04-04] MEDS: OMEPRAZOLE 20 MG CAPSULE.DR PO SCH (08:45)
[2017-04-04] MEDS: MULTIVITAMIN 1 TABLET PO SCH (08:45)
[2017-04-04] MEDS: VANCOMYCIN 50 MG/ML ORAL SUSP PO SCH ×2 (08:46→20:45)
[2017-04-04] MEDS: CHOLECALCIFEROL 1,000 UNIT TABLET PO SCH (08:46)
[2017-04-04] MEDS: INSULIN REGULAR MEDIUM DOSE QDAY SQ-INSULIN SCH (08:51)
[2017-04-04] MEDS: ASPIRIN 81 MG TABLET EC PO SCH (09:00)
[2017-04-04 16:36] VITALS: BP 111/67
[2017-04-04] MEDS ORDERED: FAT EMULSIONS IV SCH (17:00)
[2017-04-04] MEDS ORDERED: [UNRECOGNIZED DRUG - OTHER] IV SCH (17:00)
[2017-04-04] MEDS ORDERED: DEXTROSE 70% IV SCH (17:00)
[2017-04-04] MEDS ORDERED: AMINO ACID 10% IV SCH (17:00)
[2017-04-04] MEDS: FILTER, DISP 1.2 MICRON FOR TPN/PVN IV PRN (18:05)
[2017-04-04 20:00] VITALS: BP 105/58
[2017-04-04] MEDS: SIMVASTATIN 20 MG TABLET PO SCH (20:45)
[2017-04-04] MEDS: CIPROFLOXACIN 250 MG TABLET PO SCH (23:52)
[2017-04-05 01:03] VITALS: BP 110/65
[2017-04-05 04:02] LABS: BLOOD UREA NITROGEN 18 mg/dL (7-18)
[2017-04-05 07:00] VITALS: BP 107/63
[2017-04-05] MEDS: INSULIN REGULAR MEDIUM DOSE QDAY SQ-INSULIN SCH (08:27)
[2017-04-05] MEDS: TEMPLATE NON-FORMULARY MED. (Bifidobacterium Infantis** (Align**) 4 MG) PO SCH (08:40)
[2017-04-05] MEDS: ASPIRIN 81 MG TABLET EC PO SCH (08:41)
[2017-04-05] MEDS: MULTIVITAMIN 1 TABLET PO SCH (08:41)
[2017-04-05] MEDS: CALCIUM/VITAMIN D3 250-125 TABLET PO SCH ×2 (08:41→20:48)
[2017-04-05] MEDS: POTASSIUM CHLORIDE 20 MEQ TAB.ER.PRT PO SCH ×3 (08:42→20:49)
[2017-04-05] MEDS: FLUCONAZOLE 100 MG TABLET PO SCH (08:42)
[2017-04-05] MEDS: OMEPRAZOLE 20 MG CAPSULE.DR PO SCH (08:42)
[2017-04-05] MEDS: CIPROFLOXACIN 250 MG TABLET PO SCH ×2 (08:42→20:47)
[2017-04-05] MEDS: VANCOMYCIN 50 MG/ML ORAL SUSP PO SCH ×2 (08:43→20:48)
[2017-04-05] MEDS: CHOLECALCIFEROL 1,000 UNIT TABLET PO SCH (08:43)
[2017-04-05] MEDS ORDERED: OMNIPAQUE 350 MG/ML, 100ML BOTTLE ONE (14:18)
[2017-04-05] MEDS: LEVOTHYROXINE 100 MCG INJ IVPush SCH (16:30)
[2017-04-05] MEDS: FILTER, DISP 1.2 MICRON FOR TPN/PVN IV PRN (16:31)
[2017-04-05 16:32] VITALS: BP 116/72
[2017-04-05] MEDS ORDERED: FAT EMULSIONS IV SCH (17:00)
[2017-04-05] MEDS ORDERED: DEXTROSE 70% IV SCH (17:00)
[2017-04-05] MEDS ORDERED: AMINO ACID 10% IV SCH (17:00)
[2017-04-05] MEDS ORDERED: [UNRECOGNIZED DRUG - OTHER] IV SCH (17:00)
[2017-04-05 20:44] VITALS: BP 102/64
[2017-04-05] MEDS: SIMVASTATIN 20 MG TABLET PO SCH (20:49)
[2017-04-05] MEDS ORDERED: TPN PER PHARMACY MC PRN (22:30)
[2017-04-06] MEDS: SODIUM CHLORIDE 0.45% 1,000 ML IV SCH (00:04)
[2017-04-06 00:19] VITALS: BP 121/64
[2017-04-06 03:52] LABS: BLOOD UREA NITROGEN 15 mg/dL (7-18)
[2017-04-06 07:45] VITALS: BP 109/70
[2017-04-06] MEDS: OMEPRAZOLE 20 MG CAPSULE.DR PO SCH (09:16)
[2017-04-06] MEDS: CIPROFLOXACIN 250 MG TABLET PO SCH (09:16)
[2017-04-06] MEDS: POTASSIUM CHLORIDE 20 MEQ TAB.ER.PRT PO SCH (09:17)
[2017-04-06] MEDS: ASPIRIN 81 MG TABLET EC PO SCH (09:17)
[2017-04-06] MEDS: TEMPLATE NON-FORMULARY MED. (Bifidobacterium Infantis** (Align**) 4 MG) PO SCH (09:17)
[2017-04-06] MEDS: FLUCONAZOLE 100 MG TABLET PO SCH (09:17)
[2017-04-06] MEDS: MULTIVITAMIN 1 TABLET PO SCH (09:17)
[2017-04-06] MEDS: LEVOTHYROXINE 100 MCG INJ IVPush SCH (09:17)
[2017-04-06] MEDS: VANCOMYCIN 50 MG/ML ORAL SUSP PO SCH (09:17)
[2017-04-06] MEDS: CHOLECALCIFEROL 1,000 UNIT TABLET PO SCH (09:18)
[2017-04-06] MEDS: CALCIUM/VITAMIN D3 250-125 TABLET PO SCH (09:18)
[2017-04-06] MEDS: INSULIN REGULAR MEDIUM DOSE QDAY SQ-INSULIN SCH (09:18)
[2017-04-06] MEDS ORDERED: VANCOMYCIN 50 MG/ML ORAL SUSP PO SCH (11:00)
[2017-04-06 13:35] VITALS: BP 110/73
[2017-04-06] MEDS ORDERED: FLUC100T4 PO (16:58)
[2017-04-06] MEDS ORDERED: CIPR250T27 PO (16:58)
[2017-04-06] MEDS ORDERED: VANC125C11 PO (17:02)
[2017-04-06] MEDS ORDERED: ACET325C PO (17:07)
[2017-04-07] MEDS ORDERED: LEVOTHYROXINE 125 MCG TABLET PO SCH (06:00)
[2017-04-07] MEDS ORDERED: VANCOMYCIN 50 MG/ML ORAL SUSP PO SCH (16:00)
[2017-04-14] MEDS ORDERED: VANCOMYCIN 50 MG/ML ORAL SUSP PO SCH (16:00)
[2017-04-20] MEDS ORDERED: D5%-0.45NACL+KCL 20MEQ 1,000 ML IV SCH (23:24)
[2017-04-20] MEDS ORDERED: PIPERACILLIN/TAZO/PMX 3.375GM 50 ML IV SCH (23:30)
[2017-04-20] MEDS ORDERED: ONDANSETRON ODT 4 MG PO PRN (23:30)
[2017-04-21] MEDS ORDERED: METRONIDAZOLE PMX 500MG/100ML 100 ML IV SCH (00:30)
[2017-04-21] MEDS ORDERED: VANCOMYCIN 50 MG/ML ORAL SUSP PO SCH (18:00)
[2017-04-21] MEDS ORDERED: FAMOTIDINE 20 MG/2 ML IVPush SCH (21:00)
== END 2017-04-06 18:40 | DRG 862 ==
LOC: ED 04:11 → INTOOBSV 05:49 → EDIP 05:49 → 4NOR 06:32 → OBSVTOIN 03-22 15:54 → 3NW 04-02 11:20
PROVIDERS: ADMIT Internal Medicine; ATTEND Internal Medicine
PROC: 0T9B70Z Drainage of Bladder with Drainage Device, Via Natural or Artificial Opening (ICD-10-PCS; principal; 2017-03-22)
PROC: 0W9J30Z Drainage of Pelvic Cavity with Drainage Device, Percutaneous Approach (ICD-10-PCS; 2017-03-24)
PROC: 02HV33Z Insertion of Infusion Device into Superior Vena Cava, Percutaneous Approach (ICD-10-PCS; 2017-03-26)
PROC: B5181ZA Fluoroscopy of Superior Vena Cava using Low Osmolar Contrast, Guidance (ICD-10-PCS; 2017-03-26)
DX: T81.4XXA Infection following a procedure, initial encounter (principal); E43 Unspecified severe protein-calorie malnutrition; L02.211 Cutaneous abscess of abdominal wall; K57.92 Diverticulitis of intestine, part unspecified, without perforation or abscess without bleeding; E87.1 Hypo-osmolality and hyponatremia; A04.7 Enterocolitis due to Clostridium difficile; K63.2 Fistula of intestine; N73.9 Female pelvic inflammatory disease, unspecified; B95.2 Enterococcus as the cause of diseases classified elsewhere; B96.20 Unspecified Escherichia coli [E. coli] as the cause of diseases classified elsewhere; C54.1 Malignant neoplasm of endometrium; D64.9 Anemia, unspecified; E03.9 Hypothyroidism, unspecified; E78.5 Hyperlipidemia, unspecified; E86.0 Dehydration; E87.6 Hypokalemia; Z85.42 Personal history of malignant neoplasm of other parts of uterus; Z87.891 Personal history of nicotine dependence; Z90.710 Acquired absence of both cervix and uterus; Z90.722 Acquired absence of ovaries, bilateral; Z68.27 Body mass index [BMI] 27.0-27.9, adult; Z88.8 Allergy status to other drugs, medicaments and biological substances
CPT/HCPCS: 36415; 36569; 49405; 51702; 71010; 74177; 75989; 76937; 77001; 80048; 80053; 81001; 82150; 82570; 82962; 83605; 83690; 83735; 84100; 84134; 84145; 84478; 85025; 87040; 87070; 87075; 87076; 87077; 87086; 87106; 87186; 87205; 87324; 87493; 93005; 93970; 99156; 99157; C1894; G0378; J0610; J1450; J1815; J1885; J2175; J2250; J2354; J2543; J3010; J3370; J3475; J3480; J3490; Q9967; C1729; C1751; C1769; J1200; J2310; J3420; J7030; J7050; S0028

== ENCOUNTER 2017-04-20 18:51 | Inpatient (IN) | payer MEDICARE, OTHER ==
[~2017-04-20] VITALS: Ht 167.6 cm; Wt 80.0 kg
[~2017-04-20 18:51] MED LIST changes: -LEVO150T PO; -OMNIPAQUE 350 MG/ML, 75ML BOTTLE ONE; -VANCOMYCIN PO
[2017-04-20] MEDS ORDERED: SODIUM CHLORIDE 0.9% 1,000ML IVBOLUS ONE (19:30)
[2017-04-20 19:39] LABS: HEMATOCRIT 27.7 % (34.6-47.8); HEMOGLOBIN 8.9 g/dL (11.7-16.4); WHITE BLOOD COUNT 12.4 x10^3/uL (3.4-10)
[2017-04-20 19:47] LABS: ASPARTATE AMINO TRANSFERASE 79 U/L (15-37); BLOOD UREA NITROGEN 8 mg/dL (7-18)
[2017-04-20] MEDS ORDERED: FLUCONAZOLE 200 MG/100 ML 100 ML IV SCH (20:30)
[2017-04-20] MEDS ORDERED: PIPERACILLIN/TAZO/PMX 3.375GM 50 ML IV ONE (20:30)
[2017-04-20] MEDS ORDERED: METRONIDAZOLE PMX 500MG/100ML 100 ML IV ONE (20:30)
[2017-04-20] MEDS ORDERED: PIPERACILLIN/TAZO/PMX 3.375GM 50 ML ONE (20:41)
[2017-04-20] MEDS ORDERED: SODIUM CHLORIDE FLUSH 10ML SYR IVF PRN (21:00)
[2017-04-20] MEDS ORDERED: LEVO150T PO (21:04)
[2017-04-20] MEDS ORDERED: VANCOMYCIN PO (21:04)
[2017-04-20] MEDS ORDERED: METRONIDAZOLE PMX 500MG/100ML 100 ML ONE (21:19)
[2017-04-20 23:07] VITALS: BP 105/68
[2017-04-21 01:50] VITALS: BP 112/67
[2017-04-21 06:50] VITALS: BP 102/53
[2017-04-21] MEDS ORDERED: OMNIPAQUE 350 MG/ML, 100ML BOTTLE ONE (08:19)
[2017-04-21 09:52] LABS: HEMATOCRIT 27.4 % (34.6-47.8); HEMOGLOBIN 8.8 g/dL (11.7-16.4); WHITE BLOOD COUNT 11.4 x10^3/uL (3.4-10)
[2017-04-21 10:01] LABS: BLOOD UREA NITROGEN 5 mg/dL (7-18)
[2017-04-21] MEDS ORDERED: POTASSIUM CHLORIDE 20 MEQ in SODIUM CHLORIDE 0.9% 250 ML IV ONE (12:00)
[2017-04-21] MEDS ORDERED: LIDOCAINE 1%, 20ML ONE (13:15)
[2017-04-21] MEDS ORDERED: FENTANYL PF 100 MCG/2ML ONE (13:32)
[2017-04-21] MEDS ORDERED: MIDAZOLAM 1 MG/ML, 5ML ONE (13:32)
[2017-04-21] MEDS ORDERED: FLUMAZENIL 0.1 MG/1 ML, 5ML ONE (13:33)
[2017-04-21] MEDS ORDERED: NALOXONE 1 MG/ML, 2ML ONE (13:33)
[2017-04-21] MEDS: D5%-0.45NACL+KCL 20MEQ 1,000 ML IV SCH (16:00)
[2017-04-21] MEDS ORDERED: ONDANSETRON 2MG/ML, 2ML IVPush PRN (19:00)
[2017-04-21] MEDS ORDERED: FLUCONAZOLE 400 MG/200 ML 200 ML IV ONE (20:00)
[2017-04-21 20:13] VITALS: BP 150/68
[2017-04-21] MEDS: SIMVASTATIN 20 MG TABLET PO SCH (21:54)
[2017-04-21] MEDS: PIPERACILLIN/TAZO/PMX 3.375GM 50 ML IV SCH (21:54)
[2017-04-21] MEDS: HYDROcodone/APAP 5/325 TABLET PO PRN (21:59)
[2017-04-22 00:15] VITALS: BP 116/72
[2017-04-22 02:00] VITALS: BP 110/66
[2017-04-22] MEDS: PIPERACILLIN/TAZO/PMX 3.375GM 50 ML IV SCH ×3 (05:02→17:52)
[2017-04-22] MEDS: LEVOTHYROXINE 150 MCG TABLET PO SCH (05:50)
[2017-04-22] MEDS: D5%-0.45NACL+KCL 20MEQ 1,000 ML IV SCH ×2 (05:50→22:15)
[2017-04-22 05:57] LABS: BLOOD UREA NITROGEN 4 mg/dL (7-18)
[2017-04-22 06:03] LABS: HEMATOCRIT 29.3 % (34.6-47.8); HEMOGLOBIN 9.6 g/dL (11.7-16.4); WHITE BLOOD COUNT 12.1 x10^3/uL (3.4-10)
[2017-04-22] MEDS: HYDROcodone/APAP 5/325 TABLET PO PRN (08:44)
[2017-04-22] MEDS: OMEPRAZOLE 20 MG CAPSULE.DR PO SCH (08:44)
[2017-04-22] MEDS: ASPIRIN 81 MG TABLET EC PO SCH (08:45)
[2017-04-22] MEDS: FLUCONAZOLE 100 MG TABLET PO SCH (08:45)
[2017-04-22 09:54] VITALS: BP 111/58
[2017-04-22 14:28] VITALS: BP 107/66
[2017-04-22 19:32] VITALS: BP 109/67
[2017-04-22] MEDS: ACETAMINOPHEN 650 MG/20.3 ML UDC PO PRN (19:50)
[2017-04-22] MEDS: FLUCONAZOLE 200 MG/100 ML 100 ML IV SCH (19:51)
[2017-04-22] MEDS: SIMVASTATIN 20 MG TABLET PO SCH (19:51)
[2017-04-23] MEDS: PIPERACILLIN/TAZO/PMX 3.375GM 50 ML IV SCH ×3 (00:26→12:17)
[2017-04-23 02:58] VITALS: BP 117/73
[2017-04-23] MEDS: LEVOTHYROXINE 150 MCG TABLET PO SCH (05:38)
[2017-04-23 07:30] VITALS: BP 110/68
[2017-04-23] MEDS: OMEPRAZOLE 20 MG CAPSULE.DR PO SCH (08:24)
[2017-04-23] MEDS: ACETAMINOPHEN 650 MG/20.3 ML UDC PO PRN (08:24)
[2017-04-23] MEDS: ASPIRIN 81 MG TABLET EC PO SCH (08:25)
[2017-04-23] MEDS: FLUCONAZOLE 100 MG TABLET PO SCH (08:25)
[2017-04-23] MEDS: D5%-0.45NACL+KCL 20MEQ 1,000 ML IV SCH ×2 (10:51→22:02)
[2017-04-23 13:46] VITALS: BP 101/65
[2017-04-23] MEDS: HYDROcodone/APAP 5/325 TABLET PO PRN (14:22)
[2017-04-23 18:09] LABS: HEMATOCRIT 26.8 % (34.6-47.8); HEMOGLOBIN 8.6 g/dL (11.7-16.4); WHITE BLOOD COUNT 14.1 x10^3/uL (3.4-10)
[2017-04-23 18:48] VITALS: BP 118/71
[2017-04-23] MEDS: SIMVASTATIN 20 MG TABLET PO SCH (20:11)
[2017-04-23] MEDS: FLUCONAZOLE 200 MG/100 ML 100 ML IV SCH (20:11)
[2017-04-24 02:42] VITALS: BP 100/53
[2017-04-24] MEDS: LEVOTHYROXINE 150 MCG TABLET PO SCH (06:38)
[2017-04-24 08:06] VITALS: BP 125/63
[2017-04-24] MEDS: D5%-0.45NACL+KCL 20MEQ 1,000 ML IV SCH ×2 (09:06→18:48)
[2017-04-24] MEDS: ASPIRIN 81 MG TABLET EC PO SCH (09:06)
[2017-04-24] MEDS: FLUCONAZOLE 100 MG TABLET PO SCH (09:06)
[2017-04-24] MEDS: OMEPRAZOLE 20 MG CAPSULE.DR PO SCH (09:06)
[2017-04-24] MEDS: ACETAMINOPHEN 650 MG/20.3 ML UDC PO PRN ×2 (11:43→21:38)
[2017-04-24 15:19] VITALS: BP 104/67
[2017-04-24] MEDS: GUAIFENESIN/DM 200-20MG, 10ML UDC PO PRN (18:40)
[2017-04-24 19:33] LABS: HEMATOCRIT 25.9 % (34.6-47.8); HEMOGLOBIN 8.3 g/dL (11.7-16.4); WHITE BLOOD COUNT 13.7 x10^3/uL (3.4-10)
[2017-04-24 19:45] VITALS: BP 118/75
[2017-04-24] MEDS: SIMVASTATIN 20 MG TABLET PO SCH (21:12)
[2017-04-24] MEDS: FLUCONAZOLE 200 MG/100 ML 100 ML IV SCH (21:13)
[2017-04-25 01:36] VITALS: BP 114/52
[2017-04-25] MEDS: LEVOTHYROXINE 150 MCG TABLET PO SCH (06:39)
[2017-04-25 07:20] VITALS: BP 104/67
[2017-04-25] MEDS: ASPIRIN 81 MG TABLET EC PO SCH (08:06)
[2017-04-25] MEDS: OMEPRAZOLE 20 MG CAPSULE.DR PO SCH (08:06)
[2017-04-25] MEDS: D5%-0.45NACL+KCL 20MEQ 1,000 ML IV SCH ×2 (08:06→18:15)
[2017-04-25] MEDS: FLUCONAZOLE 100 MG TABLET PO SCH (08:07)
[2017-04-25 13:29] VITALS: BP 109/78
[2017-04-25] MEDS: MICAFUNGIN 100 MG in SODIUM CHLORIDE 0.9% 100 ML IV SCH (20:27)
[2017-04-25] MEDS: SIMVASTATIN 20 MG TABLET PO SCH (20:28)
[2017-04-25 20:38] VITALS: BP 96/57
[2017-04-25] MEDS: ACETAMINOPHEN 650 MG/20.3 ML UDC PO PRN (20:40)
[2017-04-25] MEDS: metroNIDAZOLE 500 MG TABLET PO SCH (22:07)
[2017-04-26 02:43] VITALS: BP 114/70
[2017-04-26] MEDS: ACETAMINOPHEN 650 MG/20.3 ML UDC PO PRN ×3 (03:47→22:34)
[2017-04-26] MEDS: D5%-0.45NACL+KCL 20MEQ 1,000 ML IV SCH ×2 (03:47→15:22)
[2017-04-26] MEDS: LEVOTHYROXINE 150 MCG TABLET PO SCH (05:43)
[2017-04-26] MEDS: metroNIDAZOLE 500 MG TABLET PO SCH ×3 (05:43→22:16)
[2017-04-26 05:55] LABS: ASPARTATE AMINO TRANSFERASE 39 U/L (15-37); BLOOD UREA NITROGEN 2 mg/dL (7-18)
[2017-04-26 08:15] VITALS: BP 122/70
[2017-04-26] MEDS: OMEPRAZOLE 20 MG CAPSULE.DR PO SCH (09:22)
[2017-04-26] MEDS: ASPIRIN 81 MG TABLET EC PO SCH (09:22)
[2017-04-26 14:11] VITALS: BP 128/70
[2017-04-26 19:46] VITALS: BP 98/64
[2017-04-26] MEDS: SIMVASTATIN 20 MG TABLET PO SCH (19:54)
[2017-04-26] MEDS: MICAFUNGIN 100 MG in SODIUM CHLORIDE 0.9% 100 ML IV SCH (19:57)
[2017-04-27 03:42] VITALS: BP 110/69
[2017-04-27] MEDS: D5%-0.45NACL+KCL 20MEQ 1,000 ML IV SCH ×2 (05:50→17:25)
[2017-04-27] MEDS: metroNIDAZOLE 500 MG TABLET PO SCH ×3 (06:03→21:25)
[2017-04-27] MEDS: LEVOTHYROXINE 150 MCG TABLET PO SCH (06:04)
[2017-04-27 07:45] VITALS: BP 112/68
[2017-04-27] MEDS: ASPIRIN 81 MG TABLET EC PO SCH (09:33)
[2017-04-27] MEDS: OMEPRAZOLE 20 MG CAPSULE.DR PO SCH (09:33)
[2017-04-27] MEDS: ACETAMINOPHEN 650 MG/20.3 ML UDC PO PRN (12:21)
[2017-04-27 13:52] VITALS: BP 112/62
[2017-04-27 18:52] VITALS: BP 138/57
[2017-04-27] MEDS: MICAFUNGIN 100 MG in SODIUM CHLORIDE 0.9% 100 ML IV SCH (19:56)
[2017-04-27] MEDS: SIMVASTATIN 20 MG TABLET PO SCH (19:56)
[2017-04-28] MEDS: D5%-0.45NACL+KCL 20MEQ 1,000 ML IV SCH ×3 (03:37→23:23)
[2017-04-28 03:55] VITALS: BP 112/68
[2017-04-28 05:26] LABS: HEMATOCRIT 23.7 % (34.6-47.8); HEMOGLOBIN 7.7 g/dL (11.7-16.4); WHITE BLOOD COUNT 12.4 x10^3/uL (3.4-10)
[2017-04-28 05:29] LABS: ASPARTATE AMINO TRANSFERASE 21 U/L (15-37); BLOOD UREA NITROGEN 4 mg/dL (7-18)
[2017-04-28] MEDS: metroNIDAZOLE 500 MG TABLET PO SCH ×3 (05:55→22:33)
[2017-04-28] MEDS: LEVOTHYROXINE 150 MCG TABLET PO SCH (05:55)
[2017-04-28 07:17] VITALS: BP 105/65
[2017-04-28] MEDS: ASPIRIN 81 MG TABLET EC PO SCH (08:33)
[2017-04-28] MEDS: OMEPRAZOLE 20 MG CAPSULE.DR PO SCH (08:33)
[2017-04-28 12:54] VITALS: BP 110/61
[2017-04-28 20:39] VITALS: BP 111/61
[2017-04-28] MEDS: SIMVASTATIN 20 MG TABLET PO SCH (20:48)
[2017-04-28] MEDS: MICAFUNGIN 100 MG in SODIUM CHLORIDE 0.9% 100 ML IV SCH (20:49)
[2017-04-29 02:34] VITALS: BP 102/61
[2017-04-29] MEDS: LEVOTHYROXINE 150 MCG TABLET PO SCH (06:10)
[2017-04-29] MEDS: metroNIDAZOLE 500 MG TABLET PO SCH (06:10)
[2017-04-29 07:10] VITALS: BP 102/51
[2017-04-29] MEDS: ASPIRIN 81 MG TABLET EC PO SCH (08:56)
[2017-04-29] MEDS: OMEPRAZOLE 20 MG CAPSULE.DR PO SCH (08:56)
[2017-04-29] MEDS ORDERED: OMNIPAQUE 350 MG/ML, 100ML BOTTLE ONE (10:47)
[2017-04-29] MEDS: D5%-0.45NACL+KCL 20MEQ 1,000 ML IV SCH ×2 (10:47→23:04)
[2017-04-29 12:22] LABS: HEMATOCRIT 24.9 % (34.6-47.8); WHITE BLOOD COUNT 13.7 x10^3/uL (3.4-10)
[2017-04-29] MEDS: AMPICILLIN/SULBACTAM 3 GM in SODIUM CHLORIDE 0.9% 100 ML IV SCH ×2 (14:30→20:29)
[2017-04-29 14:50] VITALS: BP 102/61
[2017-04-29] MEDS: ACETAMINOPHEN 650 MG/20.3 ML UDC PO PRN (18:01)
[2017-04-29 18:41] VITALS: BP 97/61
[2017-04-29] MEDS: SIMVASTATIN 20 MG TABLET PO SCH (20:29)
[2017-04-29] MEDS: MICAFUNGIN 100 MG in SODIUM CHLORIDE 0.9% 100 ML IV SCH (21:25)
[2017-04-30 01:10] VITALS: BP 139/59
[2017-04-30] MEDS: AMPICILLIN/SULBACTAM 3 GM in SODIUM CHLORIDE 0.9% 100 ML IV SCH ×4 (01:52→21:58)
[2017-04-30] MEDS: GUAIFENESIN/DM 200-20MG, 10ML UDC PO PRN ×3 (02:05→21:14)
[2017-04-30] MEDS: LEVOTHYROXINE 150 MCG TABLET PO SCH (06:41)
[2017-04-30 07:05] VITALS: BP 111/70
[2017-04-30] MEDS: OMEPRAZOLE 20 MG CAPSULE.DR PO SCH (08:43)
[2017-04-30] MEDS: ASPIRIN 81 MG TABLET EC PO SCH (08:43)
[2017-04-30] MEDS: D5%-0.45NACL+KCL 20MEQ 1,000 ML IV SCH ×2 (08:44→21:58)
[2017-04-30 10:36] LABS: HEMATOCRIT 28.9 % (34.6-47.8); HEMOGLOBIN 9.1 g/dL (11.7-16.4); WHITE BLOOD COUNT 13.4 x10^3/uL (3.4-10)
[2017-04-30 12:50] VITALS: BP 135/60
[2017-04-30] MEDS: MICAFUNGIN 100 MG in SODIUM CHLORIDE 0.9% 100 ML IV SCH (20:42)
[2017-04-30] MEDS: SIMVASTATIN 20 MG TABLET PO SCH (20:42)
[2017-04-30 20:54] VITALS: BP 114/65
[2017-05-01 02:00] VITALS: BP 122/65
[2017-05-01] MEDS: LEVOTHYROXINE 150 MCG TABLET PO SCH (04:12)
[2017-05-01] MEDS: AMPICILLIN/SULBACTAM 3 GM in SODIUM CHLORIDE 0.9% 100 ML IV SCH ×4 (04:12→23:02)
[2017-05-01] MEDS: GUAIFENESIN/DM 200-20MG, 10ML UDC PO PRN ×2 (04:23→20:38)
[2017-05-01 05:14] LABS: HEMATOCRIT 25.2 % (34.6-47.8); HEMOGLOBIN 8.2 g/dL (11.7-16.4); WHITE BLOOD COUNT 13.1 x10^3/uL (3.4-10)
[2017-05-01 07:49] VITALS: BP 100/55
[2017-05-01] MEDS: ASPIRIN 81 MG TABLET EC PO SCH (09:00)
[2017-05-01] MEDS: OMEPRAZOLE 20 MG CAPSULE.DR PO SCH (09:14)
[2017-05-01] MEDS: D5%-0.45NACL+KCL 20MEQ 1,000 ML IV SCH ×2 (10:36→23:10)
[2017-05-01] MEDS: ACETAMINOPHEN 650 MG/20.3 ML UDC PO PRN (15:09)
[2017-05-01 15:43] VITALS: BP 111/67
[2017-05-01 19:11] VITALS: BP 104/66
[2017-05-01] MEDS ORDERED: ACETAMINOPHEN 650 MG/20.3 ML UDC PO PRN (19:30)
[2017-05-01] MEDS ORDERED: ONDANSETRON 2MG/ML, 2ML IVPush PRN (19:30)
[2017-05-01] MEDS ORDERED: ONDANSETRON ODT 4 MG PO PRN (19:30)
[2017-05-01] MEDS: MICAFUNGIN 100 MG in SODIUM CHLORIDE 0.9% 100 ML IV SCH (20:19)
[2017-05-01] MEDS: SIMVASTATIN 20 MG TABLET PO SCH (20:19)
[2017-05-02 02:07] VITALS: BP 118/68
[2017-05-02] MEDS: AMPICILLIN/SULBACTAM 3 GM in SODIUM CHLORIDE 0.9% 100 ML IV SCH ×4 (05:03→22:52)
[2017-05-02] MEDS: LEVOTHYROXINE 150 MCG TABLET PO SCH (05:05)
[2017-05-02 06:30] VITALS: BP 122/71
[2017-05-02] MEDS: OMEPRAZOLE 20 MG CAPSULE.DR PO SCH (09:00)
[2017-05-02] MEDS ORDERED: ASPIRIN 81 MG TABLET EC PO SCH (09:00)
[2017-05-02] MEDS ORDERED: ROCURONIUM 10 MG/ML ONE (10:52)
[2017-05-02] MEDS ORDERED: PROPOFOL 10 MG/ML, 20ML ONE (10:52)
[2017-05-02] MEDS ORDERED: GLYCOPYRROLATE 0.2MG/1ML ONE (10:52)
[2017-05-02] MEDS ORDERED: PHENYLEPHRINE 10 MG/ML ONE (10:52)
[2017-05-02] MEDS ORDERED: KETAMINE 10 MG/ML, 20ML ONE (10:52)
[2017-05-02] MEDS ORDERED: KETOROLAC 30 MG/1 ML ONE (10:52)
[2017-05-02] MEDS ORDERED: DEXAMETHASONE 4 MG/ML, 1ML ONE (10:52)
[2017-05-02] MEDS ORDERED: ONDANSETRON 2MG/ML, 2ML ONE (10:52)
[2017-05-02] MEDS ORDERED: NEOSTIGMINE 1 MG/ML, 10ML ONE (10:52)
[2017-05-02] MEDS ORDERED: CEFOTETAN 2 GM ONE (10:52)
[2017-05-02] MEDS ORDERED: SUCCINYLCHOLINE 20 MG/ML, 10ML ONE (10:52)
[2017-05-02] MEDS: FENTANYL PF 100 MCG/2ML IV PRN ×3 (13:14→13:32)
[2017-05-02] MEDS ORDERED: OXYcodone 5 MG/5 ML ORAL.SOL UDC PO PRN (13:30)
[2017-05-02] MEDS ORDERED: hydrALAzine 20 MG/ML, 1ML IV PRN (13:30)
[2017-05-02] MEDS ORDERED: ONDANSETRON 2MG/ML, 2ML IVPush PRN (13:30)
[2017-05-02] MEDS ORDERED: ACETAMINOPHEN 325 MG TABLET PO PRN (13:30)
[2017-05-02] MEDS ORDERED: HYDROcodone/APAP 7.5-325MG/15ML UDC PO PRN (13:30)
[2017-05-02] MEDS ORDERED: EPHEDRINE 50 MG/ML, 1ML IVPush PRN (13:30)
[2017-05-02] MEDS ORDERED: LABETALOL 5MG/ML, 20ML IV PRN (13:30)
[2017-05-02] MEDS ORDERED: PROMETHAZINE 25 MG/ML, 1ML IV PRN (13:30)
[2017-05-02] MEDS ORDERED: HYDROmorphone 1 MG/ML, 1ML IV PRN (13:30)
[2017-05-02 14:29] VITALS: BP 105/69
[2017-05-02] MEDS: METRONIDAZOLE PMX 500MG/100ML 100 ML IV SCH (18:28)
[2017-05-02 19:14] VITALS: BP 115/64
[2017-05-02] MEDS: MICAFUNGIN 100 MG in SODIUM CHLORIDE 0.9% 100 ML IV SCH (19:56)
[2017-05-02] MEDS: SIMVASTATIN 20 MG TABLET PO SCH (19:56)
[2017-05-02] MEDS: D5%-0.45NACL+KCL 20MEQ 1,000 ML IV SCH (22:52)
[2017-05-03] VITALS (14 sets, daily range): BP systolic 101–118; BP diastolic 56–73
[2017-05-03] MEDS: METRONIDAZOLE PMX 500MG/100ML 100 ML IV SCH ×3 (02:38→18:09)
[2017-05-03] MEDS: AMPICILLIN/SULBACTAM 3 GM in SODIUM CHLORIDE 0.9% 100 ML IV SCH ×4 (04:30→22:11)
[2017-05-03 04:37] LABS: HEMOGLOBIN 7.7 g/dL (11.7-16.4); WHITE BLOOD COUNT 12.5 x10^3/uL (3.4-10)
[2017-05-03 04:50] LABS: BLOOD UREA NITROGEN 7 mg/dL (7-18)
[2017-05-03] MEDS: LEVOTHYROXINE 100 MCG INJ IVPush SCH (09:00)
[2017-05-03] MEDS ORDERED: DIPHENHYDRAMINE 50 MG/ML, 1ML IVPush ONE (09:00)
[2017-05-03] MEDS: D5%-0.45NACL+KCL 20MEQ 1,000 ML IV SCH (11:17)
[2017-05-03] MEDS: SIMVASTATIN 20 MG TABLET PO SCH (19:52)
[2017-05-03] MEDS: MICAFUNGIN 100 MG in SODIUM CHLORIDE 0.9% 100 ML IV SCH (19:52)
[2017-05-04] MEDS: D5%-0.45NACL+KCL 20MEQ 1,000 ML IV SCH ×2 (01:40→13:53)
[2017-05-04] MEDS: METRONIDAZOLE PMX 500MG/100ML 100 ML IV SCH ×3 (02:48→18:31)
[2017-05-04] MEDS: AMPICILLIN/SULBACTAM 3 GM in SODIUM CHLORIDE 0.9% 100 ML IV SCH ×4 (04:25→22:45)
[2017-05-04 04:31] VITALS: BP 127/68
[2017-05-04 08:44] VITALS: BP 119/69
[2017-05-04 09:43] LABS: HEMATOCRIT 30.8 % (34.6-47.8); HEMOGLOBIN 10.1 g/dL (11.7-16.4); WHITE BLOOD COUNT 13.7 x10^3/uL (3.4-10)
[2017-05-04] MEDS: LEVOTHYROXINE 100 MCG INJ IVPush SCH (09:47)
[2017-05-04 15:30] VITALS: BP 133/66
[2017-05-04 19:43] VITALS: BP 126/72
[2017-05-04] MEDS: MICAFUNGIN 100 MG in SODIUM CHLORIDE 0.9% 100 ML IV SCH (20:35)
[2017-05-04] MEDS: SIMVASTATIN 20 MG TABLET PO SCH (21:00)
[2017-05-05] MEDS: D5%-0.45NACL+KCL 20MEQ 1,000 ML IV SCH ×2 (01:15→13:36)
[2017-05-05 03:02] VITALS: BP 127/67
[2017-05-05] MEDS: METRONIDAZOLE PMX 500MG/100ML 100 ML IV SCH ×2 (03:23→12:26)
[2017-05-05] MEDS: AMPICILLIN/SULBACTAM 3 GM in SODIUM CHLORIDE 0.9% 100 ML IV SCH ×2 (04:50→10:23)
[2017-05-05 07:44] LABS: HEMATOCRIT 30.3 % (34.6-47.8); HEMOGLOBIN 9.9 g/dL (11.7-16.4); WHITE BLOOD COUNT 11.3 x10^3/uL (3.4-10)
[2017-05-05 08:10] VITALS: BP 113/68
[2017-05-05] MEDS: LEVOTHYROXINE 100 MCG INJ IVPush SCH (10:43)
[2017-05-05 13:09] VITALS: BP 129/77
[2017-05-05] MEDS: MEROPENEM 1 GM in SODIUM CHLORIDE 0.9% 100 ML IV SCH ×2 (16:01→22:59)
[2017-05-05] MEDS: LINEZOLID PMX 600MG/300ML 300 ML IV SCH (17:12)
[2017-05-05] MEDS: SIMVASTATIN 20 MG TABLET PO SCH (20:06)
[2017-05-05] MEDS: MICAFUNGIN 100 MG in SODIUM CHLORIDE 0.9% 100 ML IV SCH (20:06)
[2017-05-05 20:25] VITALS: BP 113/68
[2017-05-06] MEDS: D5%-0.45NACL+KCL 20MEQ 1,000 ML IV SCH ×2 (03:31→15:45)
[2017-05-06 03:50] VITALS: BP 116/72
[2017-05-06] MEDS: LINEZOLID PMX 600MG/300ML 300 ML IV SCH ×2 (05:06→17:14)
[2017-05-06 05:15] LABS: HEMATOCRIT 29.8 % (34.6-47.8); HEMOGLOBIN 9.7 g/dL (11.7-16.4); WHITE BLOOD COUNT 8.2 x10^3/uL (3.4-10)
[2017-05-06] MEDS: MEROPENEM 1 GM in SODIUM CHLORIDE 0.9% 100 ML IV SCH ×3 (08:17→23:50)
[2017-05-06] MEDS: LEVOTHYROXINE 100 MCG INJ IVPush SCH (08:18)
[2017-05-06 08:30] VITALS: BP 110/69
[2017-05-06 14:02] VITALS: BP 133/75
[2017-05-06] MEDS: FAMOTIDINE 20 MG/2 ML IVPush SCH ×2 (14:09→20:07)
[2017-05-06] MEDS ORDERED: PICC FLUSH PROTOCOL XX PRN (18:00)
[2017-05-06] MEDS ORDERED: SODIUM CHLORIDE FLUSH 10ML SYR IVF PRN (18:00)
[2017-05-06 19:59] VITALS: BP 121/67
[2017-05-06] MEDS: MICAFUNGIN 100 MG in SODIUM CHLORIDE 0.9% 100 ML IV SCH (20:07)
[2017-05-06] MEDS: SIMVASTATIN 20 MG TABLET PO SCH (20:07)
[2017-05-07 01:14] VITALS: BP 133/76
[2017-05-07] MEDS: LINEZOLID PMX 600MG/300ML 300 ML IV SCH ×2 (05:07→17:22)
[2017-05-07 05:10] LABS: HEMATOCRIT 29.1 % (34.6-47.8); HEMOGLOBIN 9.5 g/dL (11.7-16.4); WHITE BLOOD COUNT 7.1 x10^3/uL (3.4-10)
[2017-05-07 05:22] LABS: BLOOD UREA NITROGEN 2 mg/dL (7-18)
[2017-05-07] MEDS: FAMOTIDINE 20 MG/2 ML IVPush SCH ×2 (08:07→19:51)
[2017-05-07] MEDS: LEVOTHYROXINE 100 MCG INJ IVPush SCH (08:07)
[2017-05-07] MEDS: MEROPENEM 1 GM in SODIUM CHLORIDE 0.9% 100 ML IV SCH ×3 (08:07→23:46)
[2017-05-07 08:17] VITALS: BP 121/75
[2017-05-07] MEDS: D5%-0.45NACL+KCL 20MEQ 1,000 ML IV SCH ×2 (08:29→23:34)
[2017-05-07 14:11] VITALS: BP 137/86
[2017-05-07] MEDS ORDERED: POTASSIUM CHLORIDE 30 MEQ in SODIUM CHLORIDE 0.9% 100 ML IV ONE (16:00)
[2017-05-07 19:14] VITALS: BP 136/80
[2017-05-07] MEDS: MICAFUNGIN 100 MG in SODIUM CHLORIDE 0.9% 100 ML IV SCH (19:51)
[2017-05-07] MEDS: SIMVASTATIN 20 MG TABLET PO SCH (20:04)
[2017-05-08 02:15] VITALS: BP 119/66
[2017-05-08] MEDS: LINEZOLID PMX 600MG/300ML 300 ML IV SCH ×2 (05:12→18:03)
[2017-05-08 05:23] LABS: HEMATOCRIT 28.3 % (34.6-47.8); HEMOGLOBIN 9.3 g/dL (11.7-16.4); WHITE BLOOD COUNT 6.6 x10^3/uL (3.4-10)
[2017-05-08 05:34] LABS: BLOOD UREA NITROGEN 1 mg/dL (7-18)
[2017-05-08 07:48] VITALS: BP 134/80
[2017-05-08] MEDS: MEROPENEM 1 GM in SODIUM CHLORIDE 0.9% 100 ML IV SCH ×2 (08:09→15:32)
[2017-05-08] MEDS: LEVOTHYROXINE 100 MCG INJ IVPush SCH (08:11)
[2017-05-08] MEDS: FAMOTIDINE 20 MG/2 ML IVPush SCH ×2 (08:11→20:45)
[2017-05-08] MEDS: D5%-0.45NACL+KCL 20MEQ 1,000 ML IV SCH (13:33)
[2017-05-08 18:05] VITALS: BP 115/73
[2017-05-08 20:00] VITALS: BP 123/62
[2017-05-08] MEDS ORDERED: ONDANSETRON ODT 4 MG PO PRN (20:30)
[2017-05-08] MEDS ORDERED: PICC FLUSH PROTOCOL XX PRN (20:30)
[2017-05-08] MEDS ORDERED: ONDANSETRON 2MG/ML, 2ML IVPush PRN (20:30)
[2017-05-08] MEDS ORDERED: SODIUM CHLORIDE FLUSH 10ML SYR IVF PRN (20:30)
[2017-05-08] MEDS ORDERED: ACETAMINOPHEN 650 MG/20.3 ML UDC PO PRN (20:30)
[2017-05-08] MEDS: MICAFUNGIN 100 MG in SODIUM CHLORIDE 0.9% 100 ML IV SCH (20:45)
[2017-05-08] MEDS: SIMVASTATIN 20 MG TABLET PO SCH (20:45)
[2017-05-09] MEDS: MEROPENEM 1 GM in SODIUM CHLORIDE 0.9% 100 ML IV SCH ×3 (00:12→15:57)
[2017-05-09 02:25] VITALS: BP 134/67
[2017-05-09] MEDS: D5%-0.45NACL+KCL 20MEQ 1,000 ML IV SCH ×2 (04:42→15:58)
[2017-05-09] MEDS: LINEZOLID PMX 600MG/300ML 300 ML IV SCH ×2 (06:13→18:06)
[2017-05-09 08:31] VITALS: BP 128/76
[2017-05-09] MEDS: FAMOTIDINE 20 MG/2 ML IVPush SCH ×2 (08:52→20:29)
[2017-05-09] MEDS: LEVOTHYROXINE 100 MCG INJ IVPush SCH (08:52)
[2017-05-09] MEDS ORDERED: CATHFLO-ALTEPLASE 2 MG/2 ML CATHFLUSH ONE (10:00)
[2017-05-09 13:55] VITALS: BP 120/64
[2017-05-09] MEDS: SIMVASTATIN 20 MG TABLET PO SCH (20:24)
[2017-05-09] MEDS: MICAFUNGIN 100 MG in SODIUM CHLORIDE 0.9% 100 ML IV SCH (20:29)
[2017-05-09 20:58] VITALS: BP 133/55
[2017-05-10] MEDS: MEROPENEM 1 GM in SODIUM CHLORIDE 0.9% 100 ML IV SCH ×3 (00:05→15:28)
[2017-05-10 04:45] VITALS: BP 134/73
[2017-05-10] MEDS: LINEZOLID PMX 600MG/300ML 300 ML IV SCH ×2 (05:55→18:06)
[2017-05-10] MEDS: D5%-0.45NACL+KCL 20MEQ 1,000 ML IV SCH (05:55)
[2017-05-10 07:29] VITALS: BP 130/76
[2017-05-10] MEDS: FAMOTIDINE 20 MG/2 ML IVPush SCH (07:59)
[2017-05-10] MEDS ORDERED: TPN PER PHARMACY MC PRN (08:00)
[2017-05-10] MEDS: LEVOTHYROXINE 100 MCG INJ IVPush SCH (08:09)
[2017-05-10 09:08] LABS: ASPARTATE AMINO TRANSFERASE 13 U/L (15-37); BLOOD UREA NITROGEN 1 mg/dL (7-18)
[2017-05-10] MEDS ORDERED: FILTER, DISP 1.2 MICRON FOR TPN/PVN IV PRN (10:30)
[2017-05-10] MEDS: POTASSIUM CHLORIDE 20 MEQ in SODIUM CHLORIDE 0.45% 1,000 ML IV SCH (10:43)
[2017-05-10 13:31] VITALS: BP 120/68
[2017-05-10] MEDS ORDERED: DEXTROSE 70% IV SCH ×2 (17:00)
[2017-05-10] MEDS ORDERED: [UNRECOGNIZED DRUG - OTHER] IV SCH (17:00)
[2017-05-10] MEDS ORDERED: DEXTROSE 50%, 50ML SYRINGE IVPush PRN (17:00)
[2017-05-10] MEDS ORDERED: AMINO ACID 10% IV SCH ×2 (17:00)
[2017-05-10] MEDS ORDERED: FAT EMULSIONS IV SCH ×2 (17:00)
[2017-05-10] MEDS ORDERED: DEXTROSE 10% 500 ML IV PRN (17:00)
[2017-05-10] MEDS ORDERED: [UNRECOGNIZED DRUG - OTHER] IV SCH (17:00)
[2017-05-10] MEDS: SIMVASTATIN 20 MG TABLET PO SCH (20:15)
[2017-05-10] MEDS: MICAFUNGIN 100 MG in SODIUM CHLORIDE 0.9% 100 ML IV SCH (20:15)
[2017-05-10 20:19] VITALS: BP 127/85
[2017-05-10] MEDS: INSULIN REGULAR LOW DOSE Q6H X 48HRS SQ-INSULIN SCH (21:42)
[2017-05-11] MEDS: MEROPENEM 1 GM in SODIUM CHLORIDE 0.9% 100 ML IV SCH ×3 (00:08→15:52)
[2017-05-11 02:17] VITALS: BP 128/76
[2017-05-11] MEDS: INSULIN REGULAR LOW DOSE Q6H X 48HRS SQ-INSULIN SCH ×4 (03:20→20:40)
[2017-05-11 05:24] LABS: ASPARTATE AMINO TRANSFERASE 13 U/L (15-37); BLOOD UREA NITROGEN 3 mg/dL (7-18)
[2017-05-11 07:53] VITALS: BP 114/72
[2017-05-11] MEDS: POTASSIUM CHLORIDE 20 MEQ in SODIUM CHLORIDE 0.45% 1,000 ML IV SCH (07:56)
[2017-05-11] MEDS: LINEZOLID PMX 600MG/300ML 300 ML IV SCH ×2 (09:29→21:41)
[2017-05-11] MEDS: LEVOTHYROXINE 100 MCG INJ IVPush SCH (09:30)
[2017-05-11 13:45] VITALS: BP 138/92
[2017-05-11] MEDS ORDERED: FAT EMULSIONS IV SCH (17:00)
[2017-05-11] MEDS ORDERED: DEXTROSE 70% IV SCH (17:00)
[2017-05-11] MEDS ORDERED: AMINO ACID 10% IV SCH (17:00)
[2017-05-11] MEDS ORDERED: FILTER, DISP 1.2 MICRON FOR TPN/PVN IV PRN (17:00)
[2017-05-11] MEDS ORDERED: [UNRECOGNIZED DRUG - OTHER] IV SCH (17:00)
[2017-05-11 19:55] VITALS: BP 121/74
[2017-05-11] MEDS: MICAFUNGIN 100 MG in SODIUM CHLORIDE 0.9% 100 ML IV SCH (20:30)
[2017-05-11] MEDS: SIMVASTATIN 20 MG TABLET PO SCH (20:39)
[2017-05-12] MEDS: MEROPENEM 1 GM in SODIUM CHLORIDE 0.9% 100 ML IV SCH ×3 (00:15→16:15)
[2017-05-12 01:00] VITALS: BP 116/74
[2017-05-12] MEDS: INSULIN REGULAR LOW DOSE Q6H X 48HRS SQ-INSULIN SCH ×2 (03:10→09:00)
[2017-05-12 05:54] LABS: BLOOD UREA NITROGEN 7 mg/dL (7-18)
[2017-05-12 07:00] VITALS: BP 142/83
[2017-05-12] MEDS: LEVOTHYROXINE 100 MCG INJ IVPush SCH (08:12)
[2017-05-12] MEDS: POTASSIUM CHLORIDE 20 MEQ in SODIUM CHLORIDE 0.45% 1,000 ML IV SCH (08:13)
[2017-05-12] MEDS: LINEZOLID PMX 600MG/300ML 300 ML IV SCH ×2 (09:18→21:44)
[2017-05-12] MEDS ORDERED: OXYcodone/APAP 5/325MG TABLET PO PRN (11:30)
[2017-05-12 15:56] VITALS: BP 102/69
[2017-05-12] MEDS ORDERED: DEXTROSE 70% IV SCH (17:00)
[2017-05-12] MEDS ORDERED: [UNRECOGNIZED DRUG - OTHER] IV SCH (17:00)
[2017-05-12] MEDS ORDERED: FILTER, DISP 1.2 MICRON FOR TPN/PVN IV PRN (17:00)
[2017-05-12] MEDS ORDERED: AMINO ACID 10% IV SCH (17:00)
[2017-05-12] MEDS ORDERED: FAT EMULSIONS IV SCH (17:00)
[2017-05-12 18:45] VITALS: BP 108/70
[2017-05-12] MEDS: MICAFUNGIN 100 MG in SODIUM CHLORIDE 0.9% 100 ML IV SCH (20:01)
[2017-05-12] MEDS: SIMVASTATIN 20 MG TABLET PO SCH (20:02)
[2017-05-12] MEDS ORDERED: INSULIN REGULAR LOW DOSE QDAY SQ-INSULIN SCH (21:00)
[2017-05-13] MEDS: MEROPENEM 1 GM in SODIUM CHLORIDE 0.9% 100 ML IV SCH ×3 (00:04→16:29)
[2017-05-13 00:37] VITALS: BP 110/70
[2017-05-13 05:06] LABS: HEMATOCRIT 30.5 % (34.6-47.8); HEMOGLOBIN 9.9 g/dL (11.7-16.4); WHITE BLOOD COUNT 9.4 x10^3/uL (3.4-10)
[2017-05-13 05:19] LABS: BLOOD UREA NITROGEN 12 mg/dL (7-18)
[2017-05-13 08:00] VITALS: BP 114/75
[2017-05-13] MEDS: LEVOTHYROXINE 100 MCG INJ IVPush SCH (08:30)
[2017-05-13] MEDS ORDERED: INSULIN REGULAR LOW DOSE QDAY SQ-INSULIN SCH (09:00)
[2017-05-13] MEDS: LINEZOLID PMX 600MG/300ML 300 ML IV SCH ×2 (09:45→21:41)
[2017-05-13] MEDS: POTASSIUM CHLORIDE 20 MEQ in SODIUM CHLORIDE 0.45% 1,000 ML IV SCH (15:10)
[2017-05-13 15:45] VITALS: BP 114/71
[2017-05-13] MEDS ORDERED: [UNRECOGNIZED DRUG - OTHER] IV SCH (17:00)
[2017-05-13] MEDS ORDERED: FAT EMULSIONS IV SCH (17:00)
[2017-05-13] MEDS ORDERED: AMINO ACID 10% IV SCH (17:00)
[2017-05-13] MEDS ORDERED: FILTER, DISP 1.2 MICRON FOR TPN/PVN IV PRN (17:00)
[2017-05-13] MEDS ORDERED: DEXTROSE 70% IV SCH (17:00)
[2017-05-13] MEDS: MICAFUNGIN 100 MG in SODIUM CHLORIDE 0.9% 100 ML IV SCH (20:06)
[2017-05-13 20:11] VITALS: BP 122/77
[2017-05-13] MEDS: SIMVASTATIN 20 MG TABLET PO SCH (21:42)
[2017-05-14] MEDS: MEROPENEM 1 GM in SODIUM CHLORIDE 0.9% 100 ML IV SCH ×4 (00:32→23:07)
[2017-05-14 01:30] VITALS: BP 119/71
[2017-05-14 05:10] LABS: BLOOD UREA NITROGEN 8 mg/dL (7-18)
[2017-05-14] MEDS: LEVOTHYROXINE 100 MCG INJ IVPush SCH (08:10)
[2017-05-14 08:53] VITALS: BP 126/67
[2017-05-14] MEDS: LINEZOLID PMX 600MG/300ML 300 ML IV SCH (09:33)
[2017-05-14] MEDS ORDERED: LINEZOLID PMX 600MG/300ML 300 ML IV SCH (14:30)
[2017-05-14 15:20] VITALS: BP 115/79
[2017-05-14] MEDS ORDERED: MICAFUNGIN 100 MG in SODIUM CHLORIDE 0.9% 100 ML IV SCH (18:00)
[2017-05-14 20:24] VITALS: BP 117/75
[2017-05-15] MEDS: POTASSIUM CHLORIDE 20 MEQ in SODIUM CHLORIDE 0.45% 1,000 ML IV SCH ×2 (00:03→20:28)
[2017-05-15 02:02] VITALS: BP 126/79
[2017-05-15 08:13] VITALS: BP 128/72
[2017-05-15] MEDS: LEVOTHYROXINE 100 MCG INJ IVPush SCH (08:45)
[2017-05-15] MEDS: VORICONAZOLE 200 MG TABLET PO SCH ×4 (08:45→21:00)
[2017-05-15] MEDS: DAPTOMYCIN 500 MG in SODIUM CHLORIDE 0.9% 100 ML IVPB SCH (10:26)
[2017-05-15] MEDS: ERTAPENEM 1 GM in SODIUM CHLORIDE 0.9% 50 ML IV SCH (11:55)
[2017-05-15 14:06] VITALS: BP 113/77
[2017-05-15] MEDS ORDERED: ONDANSETRON 2MG/ML, 2ML IVPush PRN (19:30)
[2017-05-15] MEDS ORDERED: PICC FLUSH PROTOCOL XX PRN (19:30)
[2017-05-15] MEDS ORDERED: ONDANSETRON ODT 4 MG PO PRN (19:30)
[2017-05-15] MEDS ORDERED: OXYcodone/APAP 5/325MG TABLET PO PRN (19:30)
[2017-05-15] MEDS ORDERED: SODIUM CHLORIDE FLUSH 10ML SYR IVF PRN (19:30)
[2017-05-15 20:01] VITALS: BP 126/83
[2017-05-16 02:50] VITALS: BP 115/58
[2017-05-16 03:20] LABS: HEMOGLOBIN 7.8 g/dL (11.7-16.4); WHITE BLOOD COUNT 8.9 x10^3/uL (3.4-10)
[2017-05-16 03:21] LABS: BLOOD UREA NITROGEN 6 mg/dL (7-18)
[2017-05-16 03:32] LABS: ASPARTATE AMINO TRANSFERASE 54 U/L (15-37)
[2017-05-16 07:34] VITALS: BP 131/85
[2017-05-16] MEDS: LEVOTHYROXINE 100 MCG INJ IVPush SCH (08:17)
[2017-05-16] MEDS ORDERED: VORICONAZOLE 200 MG TABLET PO SCH (09:00)
[2017-05-16] MEDS: VORICONAZOLE 200 MG TABLET PO SCH (10:17)
[2017-05-16] MEDS: ERTAPENEM 1 GM in SODIUM CHLORIDE 0.9% 50 ML IV SCH (10:57)
[2017-05-16] MEDS: DAPTOMYCIN 500 MG in SODIUM CHLORIDE 0.9% 100 ML IVPB SCH (11:36)
[2017-05-16] MEDS ORDERED: VORI200T2 PO (13:10)
[2017-05-16 13:50] VITALS: BP 126/81
== END 2017-05-16 14:00 | disposition home or self-care (01) | DRG 907 ==
LOC: ED 20:29 → EDIP 20:34 → 4NOR 22:02
PROVIDERS: ADMIT Specialist; ATTEND Specialist
PROC: 0DN80ZZ Release Small Intestine, Open Approach (ICD-10-PCS; 2017-05-02)
PROC: 0DNW0ZZ Release Peritoneum, Open Approach (ICD-10-PCS; 2017-05-02)
PROC: 0DBB0ZZ Excision of Ileum, Open Approach (ICD-10-PCS; 2017-05-02)
PROC: 0T778DZ Dilation of Left Ureter with Intraluminal Device, Via Natural or Artificial Opening Endoscopic (ICD-10-PCS; 2017-05-02)
PROC: 30233N1 Transfusion of Nonautologous Red Blood Cells into Peripheral Vein, Percutaneous Approach (ICD-10-PCS; 2017-05-02)
PROC: 0DBN0ZZ Excision of Sigmoid Colon, Open Approach (ICD-10-PCS; 2017-05-02)
PROC: 0WUF07Z Supplement Abdominal Wall with Autologous Tissue Substitute, Open Approach (ICD-10-PCS; 2017-05-02)
PROC: 0WPF0JZ Removal of Synthetic Substitute from Abdominal Wall, Open Approach (ICD-10-PCS; 2017-05-02)
PROC: 0D1L0Z4 Bypass Transverse Colon to Cutaneous, Open Approach (ICD-10-PCS; 2017-05-02)
PROC: 0WJP4ZZ Inspection of Gastrointestinal Tract, Percutaneous Endoscopic Approach (ICD-10-PCS; principal; 2017-05-02 07:30)
PROC: 0T9B70Z Drainage of Bladder with Drainage Device, Via Natural or Artificial Opening (ICD-10-PCS; 2017-05-03)
PROC: 02HV33Z Insertion of Infusion Device into Superior Vena Cava, Percutaneous Approach (ICD-10-PCS; 2017-05-06)
PROC: B5181ZA Fluoroscopy of Superior Vena Cava using Low Osmolar Contrast, Guidance (ICD-10-PCS; 2017-05-06)
DX: T85.79XA Infection and inflammatory reaction due to other internal prosthetic devices, implants and grafts, initial encounter (principal); E43 Unspecified severe protein-calorie malnutrition; A04.7 Enterocolitis due to Clostridium difficile; B49 Unspecified mycosis; L02.211 Cutaneous abscess of abdominal wall; C54.1 Malignant neoplasm of endometrium; D63.8 Anemia in other chronic diseases classified elsewhere; K57.20 Diverticulitis of large intestine with perforation and abscess without bleeding; E87.6 Hypokalemia; Z68.28 Body mass index [BMI] 28.0-28.9, adult; E89.0 Postprocedural hypothyroidism; M19.90 Unspecified osteoarthritis, unspecified site; N73.6 Female pelvic peritoneal adhesions (postinfective); Y83.2 Surgical operation with anastomosis, bypass or graft as the cause of abnormal reaction of the patient, or of later complication, without mention of misadventure at the time of the procedure; Z53.31 Laparoscopic surgical procedure converted to open procedure; Z85.42 Personal history of malignant neoplasm of other parts of uterus; Z87.891 Personal history of nicotine dependence; Z90.710 Acquired absence of both cervix and uterus
CPT/HCPCS: 36415; 36569; 49405; 49406; 71260; 74000; 74177; 76937; 77001; 80048; 80053; 81001; 82330; 82550; 82570; 82803; 82947; 82962; 83605; 83735; 84100; 84132; 84134; 84145; 84295; 84478; 85014; 85025; 85610; 85651; 85730; 86140; 86850; 86900; 86923; 87040; 87070; 87075; 87077; 87106; 87186; 87205; 87324; 88300; 88304; 88307; 88309; 93005; 96361; 96365; 99156; 99157; C1729; C1894; J0171; J0295; J0610; J0878; J1100; J1170; J1335; J1450; J1644; J1815; J1885; J2020; J2185; J2248; J2250; J2270; J2405; J2543; J2704; J2710; J2997; J3010; J3475; J3480; J3490; P9045; Q9967; C1751; C1769; C2617; J0330; J1200; J2310; J2370; J3420; J7030; J7050; P9016; S0028; S0074

== ENCOUNTER → 2017-04-20 | Outpatient (CLI) | payer MEDICARE, OTHER ==
[~2017-04-20] MED LIST changes: +ACET325C PO; +CIPR250T27 PO; +FLUC100T4 PO; +LEVO150T PO; +OMNIPAQUE 350 MG/ML, 75ML BOTTLE ONE; +VANC125C11 PO; +VANCOMYCIN PO
== END | disposition home or self-care (01) ==
LOC: CFH 09:09
PROVIDERS: ATTEND Family Medicine
DX: N73.9 Female pelvic inflammatory disease, unspecified (principal); K44.9 Diaphragmatic hernia without obstruction or gangrene; J18.9 Pneumonia, unspecified organism; J98.11 Atelectasis; J92.9 Pleural plaque without asbestos; N28.1 Cyst of kidney, acquired; K76.89 Other specified diseases of liver
CPT/HCPCS: 71260; 74177; Q9967

== ENCOUNTER → 2017-05-27 | Outpatient (CLI) | payer MEDICARE, OTHER ==
[~2017-05-27] MED LIST changes: +LEVO150T PO; +OMNIPAQUE 350 MG/ML, 100ML BOTTLE ONE; -ONDA-39 PO; +ONDA4TAB12 PO; +VANCOMYCIN PO; +VORI200T2 PO
== END | disposition home or self-care (01) ==
LOC: CFH 08:35
PROVIDERS: ATTEND Internal Medicine Infectious Disease
DX: N73.0 Acute parametritis and pelvic cellulitis (principal); L02.211 Cutaneous abscess of abdominal wall; J98.11 Atelectasis; K44.9 Diaphragmatic hernia without obstruction or gangrene; M43.16 Spondylolisthesis, lumbar region; M51.36 Other intervertebral disc degeneration, lumbar region; Z96.0 Presence of urogenital implants
CPT/HCPCS: 74177; Q9967

== ENCOUNTER → 2017-06-21 | Outpatient (CLI) | payer MEDICARE, OTHER ==
[~2017-06-21] MED LIST changes: -OMNIPAQUE 350 MG/ML, 100ML BOTTLE ONE
== END | disposition home or self-care (01) ==
LOC: WOUND 13:03
PROVIDERS: ATTEND Nurse Practitioner Family
DX: T81.89XD Other complications of procedures, not elsewhere classified, subsequent encounter (principal); L23.1 Allergic contact dermatitis due to adhesives; E78.5 Hyperlipidemia, unspecified; E03.9 Hypothyroidism, unspecified; K21.9 Gastro-esophageal reflux disease without esophagitis; M19.90 Unspecified osteoarthritis, unspecified site; E43 Unspecified severe protein-calorie malnutrition; Z90.710 Acquired absence of both cervix and uterus; Y83.8 Other surgical procedures as the cause of abnormal reaction of the patient, or of later complication, without mention of misadventure at the time of the procedure
CPT/HCPCS: G0463; WOU0463

== ENCOUNTER → 2017-07-06 | Outpatient (CLI) | payer MEDICARE, OTHER | END | disposition home or self-care (01) | LOC: WOUND 09:30 | PROVIDERS: ATTEND Specialist | DX: L23.1 Allergic contact dermatitis due to adhesives (principal); Z85.42 Personal history of malignant neoplasm of other parts of uterus; Z90.710 Acquired absence of both cervix and uterus; K21.9 Gastro-esophageal reflux disease without esophagitis; E78.5 Hyperlipidemia, unspecified; E03.9 Hypothyroidism, unspecified; M19.90 Unspecified osteoarthritis, unspecified site; Z87.891 Personal history of nicotine dependence | CPT/HCPCS: G0463; WOU0463 ==

== ENCOUNTER → 2017-07-08 | Outpatient (CLI) | payer MEDICARE, OTHER | END | disposition home or self-care (01) | LOC: CFH 07:29 | PROVIDERS: ATTEND Specialist | DX: C54.1 Malignant neoplasm of endometrium (principal); Z93.3 Colostomy status; K57.30 Diverticulosis of large intestine without perforation or abscess without bleeding | CPT/HCPCS: 74270 ==

== ENCOUNTER → 2017-07-14 | Outpatient (CLI) | payer MEDICARE, OTHER ==
[~2017-07-14] MED LIST changes: +MULT-717 PO
== END | disposition home or self-care (01) ==
LOC: ROC 10:53
PROVIDERS: ATTEND Radiology Radiation Oncology
DX: C54.1 Malignant neoplasm of endometrium (principal)
CPT/HCPCS: G0463

== ENCOUNTER → 2017-07-19 | Outpatient (CLI) | payer MEDICARE, OTHER ==
[~2017-07-19] MED LIST changes: +OMNIPAQUE 350 MG/ML, 100ML BOTTLE ONE
== END | disposition home or self-care (01) ==
LOC: RAD 14:24
PROVIDERS: ATTEND Specialist
DX: K57.30 Diverticulosis of large intestine without perforation or abscess without bleeding (principal); K43.5 Parastomal hernia without obstruction or gangrene; K44.9 Diaphragmatic hernia without obstruction or gangrene; Z93.3 Colostomy status; Z96.0 Presence of urogenital implants
CPT/HCPCS: 74177; Q9967

== ENCOUNTER → 2017-10-13 | Outpatient (CLI) | payer MEDICARE, OTHER ==
[~2017-10-13] MED LIST changes: +HYDR-3240 PO; -OMNIPAQUE 350 MG/ML, 100ML BOTTLE ONE; +ONDA4TAB7 PO
== END ==
LOC: ROC 08:31
PROVIDERS: ATTEND Radiology Radiation Oncology
DX: C54.1 Malignant neoplasm of endometrium (principal)
CPT/HCPCS: G0463

== ENCOUNTER → 2017-12-28 | Outpatient (CLI) | payer MEDICARE, OTHER | END | disposition home or self-care (01) | LOC: ROC 12:48 | PROVIDERS: ATTEND Radiology Radiation Oncology | DX: C54.1 Malignant neoplasm of endometrium (principal) | CPT/HCPCS: G0463 ==

== ENCOUNTER → 2018-08-10 | Outpatient (CLI) | payer MEDICARE, OTHER ==
[~2018-08-10] MED LIST changes: -CHOL20002 PO; +CHOL200052 PO; +HYDR-3653 PO; -HYDR-882 PO
== END | disposition home or self-care (01) ==
LOC: ROC 08:30
PROVIDERS: ATTEND Radiology Radiation Oncology
DX: Z08 Encounter for follow-up examination after completed treatment for malignant neoplasm (principal); C54.1 Malignant neoplasm of endometrium
CPT/HCPCS: G0463

== ENCOUNTER 2018-11-27 10:45 | Day surgery (SDC) | payer MEDICARE, OTHER ==
[~2018-11-27] VITALS: Ht 167.6 cm; Wt 75.1 kg
[~2018-11-27 10:45] MED LIST changes: -ACET325C PO; +ACET325C3 PO; +BUPIVACAINE/PF 0.25% ONE
[2018-11-27 11:24] VITALS: BP 149/77
[2018-11-27] MEDS ORDERED: LACTATED RINGERS 1,000 ML IV SCH (11:28)
[2018-11-27] MEDS ORDERED: FENTANYL PF 250 MCG/5ML ONE (11:50)
[2018-11-27] MEDS ORDERED: MIDAZOLAM 1 MG/ML, 2ML ONE (11:50)
[2018-11-27] MEDS ORDERED: PROPOFOL 10 MG/ML, 20ML ONE ×2 (11:51→12:33)
[2018-11-27] MEDS ORDERED: SODIUM CHLORIDE 0.9% PF 10ML ONE (11:51)
[2018-11-27] MEDS ORDERED: CEFAZOLIN 1,000 MG ONE ×2 (11:51)
[2018-11-27] MEDS ORDERED: ONDANSETRON 2MG/ML, 2ML IV PRN (12:00)
[2018-11-27] MEDS ORDERED: PROMETHAZINE 12.5 MG SUPP PR PRN (12:00)
[2018-11-27] MEDS ORDERED: MEPERIDINE/PF 25MG/0.5ML IVPush PRN (12:00)
[2018-11-27] MEDS ORDERED: ONDANSETRON ODT 8 MG PO PRN (12:00)
[2018-11-27] MEDS ORDERED: PROMETHAZINE 25 MG/ML, 1ML IV PRN (12:00)
[2018-11-27] MEDS ORDERED: OXYcodone 5 MG/5 ML ORAL.SOL UDC PO PRN (12:00)
[2018-11-27] MEDS ORDERED: FENTANYL PF 100 MCG/2ML IV PRN (12:00)
[2018-11-27] MEDS ORDERED: PROMETHAZINE 25 MG SUPP PR PRN (12:00)
[2018-11-27] MEDS ORDERED: ACETAMINOPHEN 325 MG TABLET PO PRN (12:00)
[2018-11-27] MEDS ORDERED: PROMETHAZINE 25 MG/ML, 1ML IM PRN ×2 (12:00)
[2018-11-27] MEDS ORDERED: MORPHINE SULFATE 4 MG/ML, 1ML IVPush PRN (12:00)
[2018-11-27] MEDS ORDERED: HYDROmorphone 2 MG/ML, 1ML IVPush PRN (12:00)
[2018-11-27] MEDS ORDERED: hydrALAzine 20 MG/ML, 1ML IV PRN (12:00)
[2018-11-27] MEDS ORDERED: LABETALOL 5MG/ML, 20ML IV PRN (12:00)
== END 2018-11-27 14:50 | disposition home or self-care (01) ==
LOC: OUT 10:45
PROVIDERS: ATTEND Specialist
DX: C54.1 Malignant neoplasm of endometrium (principal); N85.00 Endometrial hyperplasia, unspecified; N89.8 Other specified noninflammatory disorders of vagina; E78.5 Hyperlipidemia, unspecified; E89.0 Postprocedural hypothyroidism; Z98.890 Other specified postprocedural states; Z90.722 Acquired absence of ovaries, bilateral
CPT/HCPCS: 57100; 88305; 93005; J2250; J2704; J3010; J3490; J7120; 88342; J0690

== ENCOUNTER → 2019-02-07 | Outpatient (CLI) | payer MEDICARE, OTHER ==
[~2019-02-07] MED LIST changes: -BUPIVACAINE/PF 0.25% ONE
== END | disposition home or self-care (01) ==
LOC: ROC 09:42
PROVIDERS: ATTEND Radiology Radiation Oncology
DX: Z08 Encounter for follow-up examination after completed treatment for malignant neoplasm (principal); M19.90 Unspecified osteoarthritis, unspecified site; M62.81 Muscle weakness (generalized); Z85.42 Personal history of malignant neoplasm of other parts of uterus
CPT/HCPCS: G0463

== ENCOUNTER → 2019-09-06 | Outpatient (CLI) | payer MEDICARE, OTHER ==
[~2019-09-06] MED LIST changes: +OMEP40CA42 PO; -OMEP40CA6 PO
== END | disposition home or self-care (01) ==
LOC: ROC 07:51
PROVIDERS: ATTEND Radiology Radiation Oncology
DX: C54.1 Malignant neoplasm of endometrium (principal); Z90.710 Acquired absence of both cervix and uterus
CPT/HCPCS: G0463

== ENCOUNTER 2020-02-22 08:51 | Outpatient (CLI) | payer MEDICARE, OTHER ==
[~2020-02-22 08:51] MED LIST changes: +ONDA-89 PO; -ONDA4TAB12 PO; +SIMV20TA19 PO; -SIMV20TA3 PO; +SIMV40TA20 PO; -SIMV40TA3 PO
[2020-03-05] MEDS ORDERED: LEVO88TA2 PO (11:24)
[2020-03-05] MEDS ORDERED: CHOL10003 PO (11:40)
[2020-03-05] MEDS ORDERED: CALC-126 PO (11:40)
[2020-03-05] MEDS ORDERED: MULT-717 PO (11:40)
[2020-03-05] MEDS ORDERED: LACT1CAP37 PO (11:40)
[2020-03-05] MEDS ORDERED: CALC625T13 PO (11:40)
[2020-03-05] MEDS ORDERED: LOPE1TAB4 PO (11:40)
[2020-03-05] MEDS ORDERED: VIT1CAPS11 PO (11:40)
== END 2020-02-22 23:59 | disposition home or self-care (01) ==
LOC: ROC 08:51
PROVIDERS: ATTEND Radiology Radiation Oncology
DX: Z08 Encounter for follow-up examination after completed treatment for malignant neoplasm (principal); K21.9 Gastro-esophageal reflux disease without esophagitis; E78.5 Hyperlipidemia, unspecified; E03.9 Hypothyroidism, unspecified; Z85.42 Personal history of malignant neoplasm of other parts of uterus; Z79.899 Other long term (current) drug therapy; Z87.891 Personal history of nicotine dependence; Z98.890 Other specified postprocedural states; Z90.49 Acquired absence of other specified parts of digestive tract
CPT/HCPCS: G0463

== ENCOUNTER → 2020-02-29 | Outpatient (CLI) | payer MEDICARE, OTHER ==
[~2020-02-29] MED LIST changes: +OMNIPAQUE 350 MG/ML, 100ML BOTTLE ONE
== END | disposition home or self-care (01) ==
LOC: RAD 11:39
PROVIDERS: ATTEND Radiology Radiation Oncology
DX: C54.1 Malignant neoplasm of endometrium (principal); K76.0 Fatty (change of) liver, not elsewhere classified; R91.8 Other nonspecific abnormal finding of lung field; M47.814 Spondylosis without myelopathy or radiculopathy, thoracic region; M85.88 Other specified disorders of bone density and structure, other site; N28.1 Cyst of kidney, acquired
CPT/HCPCS: 71260; 74177; Q9967

== ENCOUNTER → 2020-03-05 | Outpatient (CLI) | payer MEDICARE, OTHER ==
[~2020-03-05] MED LIST changes: +CALC-126 PO; +CALC625T13 PO; +CHOL10003 PO; +LACT1CAP37 PO; +LEVO88TA2 PO; +LOPE1TAB4 PO; -OMNIPAQUE 350 MG/ML, 100ML BOTTLE ONE; +VIT1CAPS11 PO
[2020-03-05 12:31] LABS: FREE T4 (FREE THYROXINE) 1.42 ng/dL (0.76-1.46)
== END | disposition home or self-care (01) ==
LOC: LAB 11:48
PROVIDERS: ATTEND Internal Medicine
DX: E89.0 Postprocedural hypothyroidism (principal)
CPT/HCPCS: 36415; 84439; 84443

== ENCOUNTER 2020-03-07 05:39 | Day surgery (SDC) | payer MEDICARE, OTHER ==
[2020-03-05 12:10] LABS: BASOPHILS # (AUTO) 0.02 x10^3/uL (0-0.1); BASOPHILS % (AUTO) 1 % (0-1); EOSINOPHILS # (AUTO) 0.02 x10^3/uL (0-0.4); EOSINOPHILS % (AUTO) 0 % (1-7); LYMPHOCYTES # (AUTO) 1.14 x10^3/uL (1-3.4); LYMPHOCYTES % (AUTO) 23 % (22-44); MD NO; MEAN CORPUSCULAR HEMOGLOBIN 30.2 pg (27.0-34.8); MEAN CORPUSCULAR HGB CONC 33.6 g/dL (32.4-35.8); MEAN CORPUSCULAR VOLUME 89.8 fL (80-100); MONOCYTES # (AUTO) 0.44 x10^3/uL (0.2-0.8); MONOCYTES % (AUTO) 9 % (2-9); NEUTROPHILS # (AUTO) 3.41 x10^3/uL (1.8-6.8); NEUTROPHILS % (AUTO) 68 % (42-75); PLATELET COUNT 215 x10^3/uL (130-400); RED BLOOD COUNT 4.18 x10^6/uL (3.82-5.3); RED CELL DISTRIBUTION WIDTH 14.6 % (9.6-15.2)
[2020-03-05 12:18] LABS: INTERNATIONAL NORMALIZED RATIO 0.96 (0.93-1.1); PROTHROMBIN TIME 10.2 Seconds (9.6-11.5)
[2020-03-05 12:27] LABS: ALBUMIN 3.8 g/dL (3.4-5.0); ANION GAP 8 mmol/L (5-15); CALCIUM 8.6 mg/dL (8.5-10.1); CHLORIDE 106 mmol/L (98-107)
[2020-03-05 12:31] LABS: ALANINE AMINOTRANSFERASE 19 U/L (12-78); ALKALINE PHOSPHATASE 51 U/L (45-117); BILIRUBIN,TOTAL 0.6 mg/dL (0.2-1.0); CREATININE 0.86 mg/dL (0.55-1.02); TOTAL PROTEIN 7.6 g/dL (6.4-8.2)
[~2020-03-07] VITALS: Ht 168.9 cm; Wt 74.0 kg
[2020-03-07 06:09] VITALS: BP 120/73
[2020-03-07] MEDS ORDERED: CHLORHEXIDINE 15 ML UDC MM STA (06:11)
[2020-03-07] MEDS ORDERED: LACTATED RINGERS 1,000 ML IV SCH (06:15)
[2020-03-07] MEDS ORDERED: FENTANYL PF 250 MCG/5ML ONE (06:18)
[2020-03-07] MEDS ORDERED: CEFOTETAN PMX 2GM/50ML 50 ML IV STA (06:19)
[2020-03-07] MEDS ORDERED: PHENYLEPHRINE 10 MG/ML ONE (06:24)
[2020-03-07] MEDS ORDERED: HEPARIN 1,000 UNITS/ML, 10ML ONE (06:45)
[2020-03-07] MEDS ORDERED: BUPIVACAINE/PF-EPI 0.25% 1:200K ONE (06:45)
[2020-03-07] MEDS ORDERED: HALOPERIDOL 5 MG/ML IV PRN (07:00)
[2020-03-07] MEDS ORDERED: MEPERIDINE/PF 25MG/0.5ML IVPush PRN (07:00)
[2020-03-07] MEDS ORDERED: FENTANYL PF 100 MCG/2ML IV PRN (07:00)
[2020-03-07] MEDS ORDERED: morphine SULFATE 10 MG/ML, 1ML IVPush PRN (07:00)
[2020-03-07] MEDS ORDERED: HYDROmorphone 1 MG/ML, 1ML INJ IVPush PRN (07:00)
[2020-03-07] MEDS ORDERED: PROMETHAZINE 25 MG/ML, 1ML IVPush PRN (07:00)
[2020-03-07] MEDS ORDERED: LABETALOL 5MG/ML, 20ML IV PRN (07:00)
[2020-03-07] MEDS ORDERED: hydrALAzine 20 MG/ML, 1ML IV PRN (07:00)
[2020-03-07] MEDS ORDERED: OXYcodone 5 MG/5 ML ORAL.SOL UDC PO PRN (07:00)
[2020-03-07] MEDS ORDERED: NEOSTIGMINE 1 MG/ML, 10ML ONE (07:15)
[2020-03-07] MEDS ORDERED: ROCURONIUM 10MG/ML,5ML ONE (07:15)
[2020-03-07] MEDS ORDERED: PROPOFOL 10 MG/ML, 20ML ONE (07:15)
[2020-03-07] MEDS ORDERED: SUGAMMADEX 200 MG/2 ML IVPush ONE (07:15)
[2020-03-07] MEDS ORDERED: ONDANSETRON 2MG/ML, 2ML ONE (07:15)
[2020-03-07] MEDS ORDERED: GLYCOPYRROLATE 0.2MG/1ML, 5ML ONE (07:15)
[2020-03-07] MEDS ORDERED: DEXAMETHASONE 4 MG/ML, 1ML ONE (07:15)
[2020-03-07] MEDS ORDERED: CEFAZOLIN 1,000 MG ONE (07:15)
[2020-03-07] MEDS ORDERED: VISIPAQUE 270 MG/ML, 50ML BOTTLE ONE (08:40)
[2020-03-07] MEDS ORDERED: FENTANYL PF 100 MCG/2ML ONE (09:43)
[2020-03-07] MEDS ORDERED: OXYcodone 5 MG/5 ML ORAL.SOL UDC ONE (09:43)
[2020-03-07] MEDS ORDERED: MEPERIDINE/PF 25MG/ML,1ML ONE (09:43)
== END 2020-03-07 11:00 | disposition home or self-care (01) ==
LOC: OUT 05:39
PROVIDERS: ATTEND Specialist
DX: R19.09 Other intra-abdominal and pelvic swelling, mass and lump (principal); Z11.59 Encounter for screening for other viral diseases; C44.599 Other specified malignant neoplasm of skin of other part of trunk; C54.1 Malignant neoplasm of endometrium; E03.9 Hypothyroidism, unspecified; E78.5 Hyperlipidemia, unspecified; K21.9 Gastro-esophageal reflux disease without esophagitis; Z79.899 Other long term (current) drug therapy; Z72.89 Other problems related to lifestyle; Z87.891 Personal history of nicotine dependence; Z90.49 Acquired absence of other specified parts of digestive tract; Z98.890 Other specified postprocedural states; Z82.49 Family history of ischemic heart disease and other diseases of the circulatory system
CPT/HCPCS: 11602; 36415; 36561; 71045; 71046; 76937; 77001; 80053; 85025; 85610; 85730; 88305; 93005; C1788; J0690; J1100; J1644; J2175; J2370; J2405; J2704; J2710; J3010; J3490; J7120; Q9966; U0001

== ENCOUNTER → 2020-04-07 | Outpatient (CLI) | payer MEDICARE, OTHER ==
[~2020-04-07] MED LIST changes: +GLUT500T3 PO; +PYRI50CA PO
[2020-04-07 09:29] LABS: MEAN CORPUSCULAR HEMOGLOBIN 29.8 pg (27.0-34.8); MEAN CORPUSCULAR HGB CONC 32.4 g/dL (32.4-35.8); MEAN PLATELET VOLUME 6.9 fL (7.4-10.4); PLATELET COUNT 265 x10^3/uL (130-400); RED BLOOD COUNT 4.04 x10^6/uL (3.82-5.3); RED CELL DISTRIBUTION WIDTH 16.1 % (9.6-15.2)
[2020-04-07 09:33] LABS: BASOPHILS # (AUTO) 0.03 x10^3/uL (0-0.1); BASOPHILS % (AUTO) 1 % (0-1); EOSINOPHILS # (AUTO) 0.14 x10^3/uL (0-0.4); EOSINOPHILS % (AUTO) 3 % (1-7); LYMPHOCYTES # (AUTO) 1.05 x10^3/uL (1-3.4); LYMPHOCYTES % (AUTO) 20 % (22-44); MONOCYTES # (AUTO) 0.47 x10^3/uL (0.2-0.8); MONOCYTES % (AUTO) 9 % (2-9); NEUTROPHILS # (AUTO) 3.48 x10^3/uL (1.8-6.8); NEUTROPHILS % (AUTO) 67 % (42-75)
[2020-04-07 09:34] LABS: MD NO
[2020-04-07 09:39] LABS: ALANINE AMINOTRANSFERASE 23 U/L (12-78); ALBUMIN 3.6 g/dL (3.4-5.0); ANION GAP 4 mmol/L (5-15); CALCIUM 8.7 mg/dL (8.5-10.1); CHLORIDE 108 mmol/L (98-107); CREATININE 0.85 mg/dL (0.55-1.02)
[2020-04-07 09:41] LABS: ALKALINE PHOSPHATASE 65 U/L (45-117); BILIRUBIN,TOTAL 0.4 mg/dL (0.2-1.0); TOTAL PROTEIN 7.3 g/dL (6.4-8.2)
== END | disposition home or self-care (01) ==
LOC: LAB 09:04
PROVIDERS: ATTEND Internal Medicine
DX: C54.1 Malignant neoplasm of endometrium (principal); N76.1 Subacute and chronic vaginitis; R19.09 Other intra-abdominal and pelvic swelling, mass and lump; D70.1 Agranulocytosis secondary to cancer chemotherapy
CPT/HCPCS: 36415; 80053; 83735; 85025; 86304

== ENCOUNTER → 2020-05-14 | Outpatient (CLI) | payer MEDICARE, OTHER ==
[~2020-05-14] MED LIST changes: +OMNIPAQUE 350 MG/ML, 100ML BOTTLE ONE
== END | disposition home or self-care (01) ==
LOC: CFH 10:49
PROVIDERS: ATTEND Physician Assistant
DX: C54.1 Malignant neoplasm of endometrium (principal); K43.9 Ventral hernia without obstruction or gangrene; K44.9 Diaphragmatic hernia without obstruction or gangrene; N28.1 Cyst of kidney, acquired; R19.09 Other intra-abdominal and pelvic swelling, mass and lump; N76.1 Subacute and chronic vaginitis; D70.1 Agranulocytosis secondary to cancer chemotherapy; R91.8 Other nonspecific abnormal finding of lung field; J84.10 Pulmonary fibrosis, unspecified; R19.05 Periumbilic swelling, mass or lump; M85.88 Other specified disorders of bone density and structure, other site
CPT/HCPCS: 71260; 74177; Q9967

== ENCOUNTER → 2020-05-21 | Outpatient (CLI) | payer MEDICARE, OTHER ==
[~2020-05-21] MED LIST changes: -OMNIPAQUE 350 MG/ML, 100ML BOTTLE ONE
== END | disposition home or self-care (01) ==
LOC: ROC 07:33
PROVIDERS: ATTEND Radiology Radiation Oncology
DX: C54.1 Malignant neoplasm of endometrium (principal); K21.9 Gastro-esophageal reflux disease without esophagitis; E78.5 Hyperlipidemia, unspecified; E89.0 Postprocedural hypothyroidism; Z79.899 Other long term (current) drug therapy; Z87.891 Personal history of nicotine dependence; Z90.49 Acquired absence of other specified parts of digestive tract
CPT/HCPCS: G0463

== ENCOUNTER 2020-07-11 07:49 | Outpatient (CLI) | payer MEDICARE, OTHER ==
[~2020-07-11 07:49] MED LIST changes: +ARGI500T2 PO; +GABA-826 PO
== END 2020-07-11 23:59 | disposition home or self-care (01) ==
LOC: ROC 07:49
PROVIDERS: ATTEND Radiology Radiation Oncology
DX: C54.1 Malignant neoplasm of endometrium (principal); R91.8 Other nonspecific abnormal finding of lung field; K21.9 Gastro-esophageal reflux disease without esophagitis; E78.5 Hyperlipidemia, unspecified; E89.0 Postprocedural hypothyroidism; Z90.49 Acquired absence of other specified parts of digestive tract; Z90.710 Acquired absence of both cervix and uterus; Z79.899 Other long term (current) drug therapy; Z87.891 Personal history of nicotine dependence
CPT/HCPCS: G0463

== ENCOUNTER → 2020-07-17 | Outpatient (CLI) | payer MEDICARE, OTHER | END | disposition home or self-care (01) | LOC: PETCFH 12:31 | PROVIDERS: ATTEND Specialist | DX: C54.1 Malignant neoplasm of endometrium (principal); K43.9 Ventral hernia without obstruction or gangrene; K44.9 Diaphragmatic hernia without obstruction or gangrene; R91.8 Other nonspecific abnormal finding of lung field; N76.1 Subacute and chronic vaginitis; D70.1 Agranulocytosis secondary to cancer chemotherapy; G89.18 Other acute postprocedural pain; G62.0 Drug-induced polyneuropathy; K45.0 Other specified abdominal hernia with obstruction, without gangrene | CPT/HCPCS: 78815; A9552 ==

== ENCOUNTER → 2020-10-01 | Outpatient (CLI) | payer MEDICARE, OTHER ==
[~2020-10-01] MED LIST changes: +GABA-827 PO; +PROG100C10 PO; +TAMO10TA6 PO
[2020-10-01 09:20] LABS: ALANINE AMINOTRANSFERASE 21 U/L (12-78); ALBUMIN 3.3 g/dL (3.4-5.0); ANION GAP 7 mmol/L (5-15); CALCIUM 8.6 mg/dL (8.5-10.1); CHLORIDE 113 mmol/L (98-107); CREATININE 0.99 mg/dL (0.55-1.02)
[2020-10-01 09:28] LABS: ALKALINE PHOSPHATASE 41 U/L (45-117); BILIRUBIN,TOTAL 0.4 mg/dL (0.2-1.0); CHOL/HDL RATIO 2.8; CHOLESTEROL, TOTAL 138 mg/dL (140-239); FREE T4 (FREE THYROXINE) 1.13 ng/dL (0.76-1.46); HDL CHOL % 36 % (28-40); HDL CHOLESTEROL (DIRECT) 50 mg/dL (40-60); LDL CHOLESTEROL,CALCULATED 67 mg/dL (54-169); LDL/HDL RATIO 1.3 (0.5-3.0); TOTAL PROTEIN 7.1 g/dL (6.4-8.2); TRIGLYCERIDES 106 mg/dL (50-200); VLDL CHOLESTEROL 21 mg/dL (0-25)
== END | disposition home or self-care (01) ==
LOC: LAB 08:51
PROVIDERS: ATTEND Internal Medicine
DX: E78.2 Mixed hyperlipidemia (principal); E89.0 Postprocedural hypothyroidism
CPT/HCPCS: 36415; 80053; 80061; 84439; 84443

== ENCOUNTER → 2020-11-27 | Outpatient (CLI) | payer MEDICARE, OTHER ==
[~2020-11-27] MED LIST changes: +HYDR-1067 PO; -HYDR-3240 PO
[2020-11-27 14:12] LABS: BASOPHILS % (AUTO) 1 % (0-1); EOSINOPHILS % (AUTO) 0 % (1-7); LYMPHOCYTES % (AUTO) 35 % (22-44); MEAN CORPUSCULAR HEMOGLOBIN 29.6 pg (27.0-34.8); MONOCYTES % (AUTO) 8 % (2-9); NEUTROPHILS % (AUTO) 56 % (42-75); PLATELET COUNT 297 x10^3/uL (130-400); RED BLOOD COUNT 3.43 x10^6/uL (3.82-5.3); RED CELL DISTRIBUTION WIDTH 15.4 % (9.6-15.2)
[2020-11-27 14:14] LABS: MD NO
[2020-11-27 14:50] LABS: FOLATE LEVEL > 20.0 ng/mL (3.1-17.5)
== END | disposition home or self-care (01) ==
LOC: LAB 13:50
PROVIDERS: ATTEND Internal Medicine
DX: E89.0 Postprocedural hypothyroidism (principal); D64.9 Anemia, unspecified; E83.51 Hypocalcemia; G62.9 Polyneuropathy, unspecified; G62.89 Other specified polyneuropathies
CPT/HCPCS: 36415; 82306; 82607; 82728; 82746; 84439; 84443; 84481; 85025